=== PATIENT | female | born 1985 | race Caucasian/White ===

== ENCOUNTER → 2020-07-30 13:08 | Outpatient (BNVA) | payer MEDICAID, SELFPAY | PROVIDERS: PCP Student in an Organized Health Care Education/Training Program; Visit Provider Student in an Organized Health Care Education/Training Program | DX: Z76.89 Persons encountering health services in other specified circumstances (principal) ==

== ENCOUNTER 2020-08-11 08:36 | Emergency (ER) | payer MEDICAID, SELFPAY ==
--- NOTE | 2020-08-11 09:27 | ED.GENADULT ---
HPI - General Adult General Chief complaint: Abdominal Pain <Darya Hernández NP - Last Filed: 08/11/20 09:30> Stated complaint: abd pain <Darya Hernández NP - Last Filed: 08/11/20 09:30> Time Seen by Provider: 08/11/20 09:27 <Darya Hernández NP - Last Filed: 08/11/20 09:30> Source: patient <Mack Pittman MD - Last Filed: 08/11/20 11:13> Mode of arrival: ambulatory <Mack Pittman MD - Last Filed: 08/11/20 11:13> Limitations: no limitations <Mack Pittman MD - Last Filed: 08/11/20 11:13> History of Present Illness HPI narrative: patient taking percocet for wrist surgery, now with increased constipation <Mack Pittman MD - Last Filed: 08/11/20 11:13> Onset (ago): day(s) <Mack Pittman MD - Last Filed: 08/11/20 11:13> Radiation: back <Mack Pittman MD - Last Filed: 08/11/20 11:13> Severity: mild <Mack Pittman MD - Last Filed: 08/11/20 11:13> Quality: aching <Mack Pittman MD - Last Filed: 08/11/20 11:13> Associated symptoms: nausea/vomiting <Mack Pittman MD - Last Filed: 08/11/20 11:13> Related Data Home medications: Previous Rx's Medication Instructions Recorded lactulose 20 g PO TID #1200 ml 08/11/20 psyllium husk (with sugar) 1 tbsp PO DAILY #1368 g 08/11/20 [Metamucil (with sugar)] <Darya Hernández NP - Last Filed: 08/11/20 09:30> Allergies/adverse reactions: Allergies Allergy/AdvReac Type Severity Reaction Status Date / Time esomeprazole [From NEXIUM] Allergy Unknown NOT SURE Verified 07/30/20 13:09 penicillin V Allergy Unknown rash, Verified 07/30/20 13:09 swelling, itching Penicillins Allergy Unknown RASH Verified 07/30/20 13:09 <Darya Hernández NP - Last Filed: 08/11/20 09:30> Review of Systems Constitutional: Constitutional: Reports no additional constitutional complaints <Mack Pittman MD - Last Filed: 08/11/20 11:13> Eyes: Eyes: Reports no additional eye complaints <Mack Pittman MD - Last Filed: 08/11/20 11:13> ENT: Denies dizziness <Mack Pittman MD - Last Filed: 08/11/20 11:13> Cardiovascular: Cardiovascular: Reports no additional cardiovascular complaints <Mack Pittman MD - Last Filed: 08/11/20 11:13> Respiratory: Respiratory: Reports as per HPI <Mack Pittman MD - Last Filed: 08/11/20 11:13> Gastrointestinal: Gastrointestinal: Reports no additional gastrointestinal complaints <Mack Pittman MD - Last Filed: 08/11/20 11:13> Genitourinary: Genitourinary: Reports no additional female genitourinary complaints <Mack Pittman MD - Last Filed: 08/11/20 11:13> Musculoskeletal: Musculoskeletal: Reports no additional musculoskeletal complaints <Mack Pittman MD - Last Filed: 08/11/20 11:13> Integumentary/Breasts: Skin/Breast: Denies rash <Mack Pittman MD - Last Filed: 08/11/20 11:13> Neurologic: Reports system reviewed and no additional complaints, except as documented, Denies dizziness and Denies Sensory deficit (Neuro) <Mack Pittman MD - Last Filed: 08/11/20 11:13> Psychiatric: Psychiatric: Denies anxiety <Mack Pittman MD - Last Filed: 08/11/20 11:13> PMFSH Past Medical History Medical History: Medical History KIARA positive Carpal tunnel syndrome <Darya Hernández NP - Last Filed: 08/11/20 09:30> Social History Social History: Social History Alcohol intake: current Smoking Status: Never smoker Advance Directives: No Advance Directives Information Provided: No <Darya Hernández NP - Last Filed: 08/11/20 09:30> Physical Exam Vital Signs: Vital Signs: Last Vital Signs Temp 98.6 F 08/11/20 09:28 Pulse 95 08/11/20 09:28 Resp 18 08/11/20 09:28 BP 133/92 H 08/11/20 09:28 Pulse Ox 100 08/11/20 09:28 Body Mass Index 30.2 <Darya Hernández NP - Last Filed: 08/11/20 09:30> Vital Signs: Last Vital Signs Temp 98.6 F 08/11/20 09:28 Pulse 95 08/11/20 09:28 Resp 18 08/11/20 09:28 BP 133/92 H 08/11/20 09:28 Pulse Ox 100 08/11/20 09:28 Body Mass Index 30.2 <Mack Pittman MD - Last Filed: 08/11/20 11:13> Const: General: healthy appearing <Mack Pittman MD - Last Filed: 08/11/20 11:13> Nutritional Appearance: average body habitus <Mack Pittman MD - Last Filed: 08/11/20 11:13> Orientation/consciousness: oriented to person and patient oriented x3 <Mack Pittman MD - Last Filed: 08/11/20 11:13> Limitations: no limitations <Mack Pittman MD - Last Filed: 08/11/20 11:13> HENMT: Head: Yes normal to inspection <Mack Pittman MD - Last Filed: 08/11/20 11:13> Ears: external ears normal <Mack Pittman MD - Last Filed: 08/11/20 11:13> General nose exam: Normal external nose present <Mack Pittman MD - Last Filed: 08/11/20 11:13> Mouth: Normal oral and palatal mucosa present and oropharynx normal <Mack Pittman MD - Last Filed: 08/11/20 11:13> Throat: Yes posterior oropharynx normal <Mack Pittman MD - Last Filed: 08/11/20 11:13> Eyes: General: appearance normal, both eyes and all related structures <Mack Pittman MD - Last Filed: 08/11/20 11:13> Neck: Other: supple <Mack Pittman MD - Last Filed: 08/11/20 11:13> Neck: Yes normal visual inspection <Mack Pittman MD - Last Filed: 08/11/20 11:13> Chest: Chest palpation & inspection: normal inspection of the chest <Mack Pittman MD - Last Filed: 08/11/20 11:13> Resp: Auscultation: clear to auscultation bilaterally <Mack Pittman MD - Last Filed: 08/11/20 11:13> Cardio: Jugular venous distension: no JVD <Mack Pittman MD - Last Filed: 08/11/20 11:13> Rate: regular rate <Mack Pittman MD - Last Filed: 08/11/20 11:13> Rhythm: regular rhythm <Mack Pittman MD - Last Filed: 08/11/20 11:13> Heart sounds: S1 normal heart sound present and S2 normal heart sound present <Mack Pittman MD - Last Filed: 08/11/20 11:13> GI: Inspection: Yes normal to inspection <Mack Pittman MD - Last Filed: 08/11/20 11:13> Palpation (GI): Soft to palpation, nontender and No hepatosplenomegaly present <Mack Pittman MD - Last Filed: 08/11/20 11:13> Auscultation: Hypoactive bowel sounds present <Mack Pittman MD - Last Filed: 08/11/20 11:13> : General: Yes no CVA tenderness <Mack Pittman MD - Last Filed: 08/11/20 11:13> Back/Spine/Pelvis: Back: no CVA tenderness <Mack Pittman MD - Last Filed: 08/11/20 11:13> Skin: General skin exam: no rashes or lesions noted <Mack Pittman MD - Last Filed: 08/11/20 11:13> Neuro: General: oriented to person and patient oriented x3 <Mack Pittman MD - Last Filed: 08/11/20 11:13> Cranial nerves: Yes CN's II-XII intact bilaterally <Mack Pittman MD - Last Filed: 08/11/20 11:13> Motor exam (neuro): 5/5 motor strength present throughout <Mack Pittman MD - Last Filed: 08/11/20 11:13> Sensory Exam: No Sensory deficit (Neuro) <Mack Pittman MD - Last Filed: 08/11/20 11:13> Extrem: General: Yes normal to inspection <Mack Pittman MD - Last Filed: 08/11/20 11:13> Psych: Appearance: grossly normal <Mack Pittman MD - Last Filed: 08/11/20 11:13> Course Course Course Narrative: [id number]-This serves as a rapid medical exam. 34 yo female here with constipation. Had surgery last and given percocet. Last BM then. Took laxative yesterday now having abdominal cramping, vomiting x2. Stable vital signs. Will check KUB. Deferred additional HPI, ROS and PE to primary provider. <Darya Hernández NP - Last Filed: 08/11/20 09:30> Medical Decision Making [facility] Narrative Medical decision making narrative: Patient with hypoactive BS on exam, soft abdomen, will start lactulose <Mack Pittman MD - Last Filed: 08/11/20 11:13> Discharge Plan Discharge Clinical Impression: Constipation Qualifiers: Constipation type: drug induced constipation Qualified Code(s): K59.03 - Drug induced constipation <Darya Hernández NP - Last Filed: 08/11/20 09:30> Patient Disposition: Home, Self-Care <Darya Hernández NP - Last Filed: 08/11/20 09:30> Instructions: Constipation (ED) <Darya Hernández NP - Last Filed: 08/11/20 09:30> Prescriptions: New lactulose 20 gram/30 mL solution 20 g PO TID Qty: 1200 RF: 0 Metamucil (with sugar) 3.4 gram/12 gram powder 1 tbsp PO DAILY Qty: 1368 RF: 0 <Darya Hernández NP - Last Filed: 08/11/20 09:30>
[2020-08-11 09:28] VITALS: BP 133/92; PULSE 95; RESP 18; TEMP 37; O2SAT 100; BMI 30.2
--- NOTE | 2020-08-11 09:30 | XR_ITS ---
EXAMINATION: XR ABDOMEN KUB CLINICAL INDICATION: Evaluate stool burden COMPARISON: Previous CT December 2019 TECHNIQUE: AP view of the abdomen. FINDINGS: The bowel gas pattern is normal with no evidence of ileus or obstruction. There is some stool throughout the colon. No unusual soft tissue calcifications are noted. The gallbladder has been removed. There is a sclerotic density in the left femoral head that is unchanged probably representing a bone island. The bones are otherwise unremarkable. XR/XR KUB IMPRESSION: Normal bowel gas pattern.
[2020-08-11 11:24] VITALS: BP 118/71; PULSE 103; RESP 18; O2SAT 98
[2020-08-11] MEDS: Lactulose 20 GM/30 ML SOLUTION PO (11:25)
== END 2020-08-11 11:48 | disposition home or self-care (01) ==
PROVIDERS: Emergency Provider Emergency Medicine
DX: K59.03 Drug induced constipation (principal); Z98.890 Other specified postprocedural states
CPT/HCPCS: 74018; 99283

== ENCOUNTER 2020-08-14 10:02 | Outpatient (REF) | payer MEDICAID, SELFPAY ==
[2020-08-14 11:58] LABS: MANUAL DIFF FLAG NO
[2020-08-14 12:16] LABS: Basophils Percent Auto 0.5 % (0-2); Eosinophils Absolute Auto 0.1 X10*3/uL (0.0-0.4); Hematocrit 37.6 % (37-47); Hemoglobin 12.1 g/dl (12.0-16.0); Imm Gran Abs Auto 0.03 X10*3/uL (0.00-0.03); Imm Gran Pct Auto 0.5 % (0.0-0.4); Lymphocytes Absolute Auto 1.6 X10*3/uL (1.2-4.9); Mean Corpuscular HGB Conc 32.2 g/dl (31.0-35.0); Mean Corpuscular Hemoglobin 27.4 pg (27.0-33.0); Mean Corpuscular Volume 85.3 fL (80-98); Mean Platelet Volume 8.3 fL (9.4-12.3); Monocytes Absolute Auto 0.3 X10*3/uL (0.1-1.2); Monocytes Percent Auto 5.2 % (2-11); Neutrophils Absolute Auto 4.1 X10*3/uL (2.0-8.3); Neutrophils Percent Auto 66.8 % (45-73); Platelet Count 327 X10*3/uL (160-400); Red Blood Count 4.41 X10*6/uL (4.20-5.50); Red Cell Distribution Width 13.2 % (11.0-16.0); White Blood Count 6.2 X10*3/uL (4.8-10.8)
[2020-08-14 12:30] LABS: Alanine Aminotransferase 19 U/L (0-31); Albumin Level 4.4 g/dL (3.5-5.0); Alkaline Phosphatase 48 U/L (39-117); Anion Gap 15 (12-20); Aspartate Amino Transferase 19 U/L (5-31); Bilirubin Total 0.3 mg/dL (0.0-1.0); Blood Urea Nitrogen 11 mg/dL (9-16); C Reactive Protein 1.04 mg/dL (< or = 0.50); Calcium 9.1 mg/dL (8.4-10.2); Carbon Dioxide 21 mmol/L (22-29); Chloride 106 mmol/L (96-108); Estimated Glomerular Filt Rate > 60; Glucose Random 100 mg/dL (60-115); Potassium 4.4 mmol/l (3.3-5.1); Sodium 138 mmol/L (135-145)
[2020-08-14 12:54] LABS: Thyroid Stimulating Hormone 1.65 uIU/mL (0.32-4.0)
[2020-08-14 13:21] LABS: Erythrocyte Sedimentation Rate 18 MM/HR (0-20)
[2020-08-15 12:37] LABS: Anti DNA DS Antibody 3 IU/mL; SM/Ribonucleoprotein Ab <1.0 NEG AI (<1.0 NEG); Smith Protein <1.0 NEG AI (<1.0 NEG)
[2020-08-17 16:48] LABS: C. trachomatis RNA TMA NOT DETECTED (NOT DETECTED); N. gonorrhoeae RNA TMA NOT DETECTED (NOT DETECTED)
[2020-08-17 21:02] LABS: Complement C3 163 mg/dL (83-193)
== END 2020-08-14 10:03 | disposition home or self-care (01) ==
LOC: HO.LAB 10:02
PROVIDERS: Absent Provider Student in an Organized Health Care Education/Training Program; PCP Student in an Organized Health Care Education/Training Program; Visit Provider Advanced Practice Midwife
DX: Z01.419 Encounter for gynecological examination (general) (routine) without abnormal findings (principal); N92.0 Excessive and frequent menstruation with regular cycle; B35.6 Tinea cruris; R10.2 Pelvic and perineal pain; R76.8 Other specified abnormal immunological findings in serum; Z20.2 Contact with and (suspected) exposure to infections with a predominantly sexual mode of transmission; Z88.0 Allergy status to penicillin; Z88.8 Allergy status to other drugs, medicaments and biological substances; Z79.899 Other long term (current) drug therapy
CPT/HCPCS: 36415; 80053; 84443; 85025; 85652; 86140; 86160; 86225; 86235; 87491; 87591

== ENCOUNTER → 2020-09-10 08:20 | Outpatient (BNVA) | payer MEDICAID, SELFPAY | PROVIDERS: PCP Student in an Organized Health Care Education/Training Program; Visit Provider Student in an Organized Health Care Education/Training Program | DX: R76.8 Other specified abnormal immunological findings in serum (principal) | CPT/HCPCS: 99212 ==

== ENCOUNTER 2020-10-15 13:23 | Outpatient (REF) | payer MEDICAID, SELFPAY ==
--- NOTE | ~2020-10-15 | US_ITS ---
EXAMINATION: US PELVIS COMPLETE CLINICAL INFORMATION: Pelvic and perineal pain. COMPARISON: None TECHNIQUE: Transabdominal and transvaginal ultrasound of the pelvis is performed. FINDINGS: On transabdominal ultrasound, the uterus is anteverted and anteflexed measuring 9.9 cm in length, 5.8 cm in AP, and 7.5 cm in transverse dimension. The endometrial thickness is 1.6 cm. There is a hypoechoic lesion in the left fundus measuring 2.5 x 2.4 x 2.4 cm. Previously it measured 2.0 x 1.8 x 2.3 cm. There are small nabothian cysts seen in the cervix. The right ovary measures 3.6 x 2.8 x 3.5 cm and volume 18.5 mL. There is a corpus luteal cyst measuring 2.3 x 1.7 x 1.6 cm. Previously right ovary measured 2.1 x 2.0 x 2.8 cm. The left ovary measures 2.7 x 2.2 x 1.6 cm and volume 5.0 mL. Previously it measured 3.4 x 2.9 x 3.6 cm. US/US pelvic complete IMPRESSION: Atcsc-mg-hyqjeysn-sized solitary fibroid left uterus. Small nabothian cysts seen in the cervix. Small corpus luteal cyst right ovary measuring 2.3 cm.
--- NOTE | ~2020-10-15 | US_ITS ---
EXAMINATION: US PELVIS COMPLETE CLINICAL INFORMATION: Pelvic and perineal pain. COMPARISON: None TECHNIQUE: Transabdominal and transvaginal ultrasound of the pelvis is performed. FINDINGS: On transabdominal ultrasound, the uterus is anteverted and anteflexed measuring 9.9 cm in length, 5.8 cm in AP, and 7.5 cm in transverse dimension. The endometrial thickness is 1.6 cm. There is a hypoechoic lesion in the left fundus measuring 2.5 x 2.4 x 2.4 cm. Previously it measured 2.0 x 1.8 x 2.3 cm. There are small nabothian cysts seen in the cervix. The right ovary measures 3.6 x 2.8 x 3.5 cm and volume 18.5 mL. There is a corpus luteal cyst measuring 2.3 x 1.7 x 1.6 cm. Previously right ovary measured 2.1 x 2.0 x 2.8 cm. The left ovary measures 2.7 x 2.2 x 1.6 cm and volume 5.0 mL. Previously it measured 3.4 x 2.9 x 3.6 cm. US/US transvaginal IMPRESSION: Qyilh-mc-cqajlcgq-sized solitary fibroid left uterus. Small nabothian cysts seen in the cervix. Small corpus luteal cyst right ovary measuring 2.3 cm.
== END 2020-10-15 13:24 | disposition home or self-care (01) ==
LOC: HO.US 13:23
PROVIDERS: Visit Provider Advanced Practice Midwife
DX: R10.2 Pelvic and perineal pain (principal)
CPT/HCPCS: 76830; 76856

== ENCOUNTER → 2020-10-21 10:38 | Outpatient (BNVA) | payer MEDICAID, SELFPAY | PROVIDERS: Visit Provider Advanced Practice Midwife ==

== ENCOUNTER 2021-06-09 14:25 | Outpatient (REF) | payer MEDICAID, SELFPAY ==
[2021-06-10 09:34] LABS: CT PCR NOT DETECTED (Not Detect.); NG PCR NOT DETECTED (Not Detect.)
[2021-06-10 09:46] LABS: BV Int Neg Control Negative (Negative); BV Int Pos Control Positive (Positive)
== END 2021-06-09 14:26 | disposition home or self-care (01) ==
LOC: HO.LAB 14:25
PROVIDERS: Visit Provider Advanced Practice Midwife
DX: Z11.3 Encounter for screening for infections with a predominantly sexual mode of transmission (principal); R10.2 Pelvic and perineal pain
CPT/HCPCS: 87086; 87480; 87491; 87510; 87591; 87660; 99212

== ENCOUNTER 2021-06-14 15:26 | Outpatient (REF) | payer MEDICAID, SELFPAY ==
--- NOTE | ~2021-06-14 | US_ITS ---
EXAMINATION: US PELVIS CLINICAL INFORMATION: Pelvic and perineal pain. COMPARISON: None TECHNIQUE: Ultrasound of the pelvis is performed using both transabdominal and transvaginal transducers along with Doppler. Transvaginal imaging is performed due to inadequate visualization transabdominally. FINDINGS: Uterus: The uterus is anteverted, anteflexed and measures 11.48 seen in length, 7.0 seen AP and 9.1 cm in transverse dimension. The double wall endometrial thickness is 1.9 CM. The uterus is smooth in contour and has normal myometrial echogenicity. There is a solid isoechoic mass posterior uterus measuring 4.5 x 4.8 x 4.4 cm. Previously it measured 2.5 x 2.4 x 2.4 cm. Adnexa: Both ovaries are visualized. There is normal color flow to the adnexa. There is no ovarian torsion. There is no pelvic ascites or fluid collection. Right ovary measures 3.9 x 2.0 x 2.0 and volume 8.4 mL. Appears unremarkable. Previously right ovary measured 3.6 x 2.8 x 3.5 cm. Left ovary measures 3.2 x 1.7 x 3.1 and volume 8.9 mL. Previously left ovary measured 2.7 x 2.2 x 1.6 cm. There is no free fluid in the cul-de-sac. US/US pelvic and transvaginal IMPRESSION: Solitary fibroid posterior uterus. Normal bilateral ovaries. There is no free fluid in the cul-de-sac.
== END 2021-06-14 15:27 | disposition home or self-care (01) ==
LOC: HO.HMGCX 15:26
PROVIDERS: Visit Provider Advanced Practice Midwife
DX: R10.2 Pelvic and perineal pain (principal)
CPT/HCPCS: 76830; 76856

== ENCOUNTER → 2021-06-30 13:27 | Outpatient (BNVA) | payer MEDICAID, SELFPAY | PROVIDERS: Visit Provider Advanced Practice Midwife ==

== ENCOUNTER 2021-07-02 12:44 | Outpatient (REF) | payer MEDICAID, SELFPAY ==
[2021-07-02 13:59] LABS: Hematocrit 34.4 % (37.0-47.0); Mean Corpuscular Hemoglobin 25.8 pg (27.0-33.0); Mean Corpuscular Volume 80.8 fL (80.0-98.0); Mean Platelet Volume 8.4 fL (9.4-12.3); Platelet Count 372 X10*3/uL (160-400); Red Blood Count 4.26 X10*6/uL (4.20-5.50); Red Cell Distribution Width 14.4 % (11.0-16.0); White Blood Count 7.4 X10*3/uL (4.8-10.8)
[2021-07-02 14:37] LABS: Thyroid Stimulating Hormone 2.06 uIU/mL (0.32-4.0)
[2021-07-03 03:01] LABS: CT PCR NOT DETECTED (Not Detect.); NG PCR NOT DETECTED (Not Detect.)
== END 2021-07-02 12:45 | disposition home or self-care (01) ==
LOC: HO.LAB 12:44
PROVIDERS: Advanced Practice Midwife; Visit Provider Obstetrics & Gynecology
DX: N92.0 Excessive and frequent menstruation with regular cycle (principal); N92.1 Excessive and frequent menstruation with irregular cycle; Z11.8 Encounter for screening for other infectious and parasitic diseases; Z11.3 Encounter for screening for infections with a predominantly sexual mode of transmission; Z13.29 Encounter for screening for other suspected endocrine disorder
CPT/HCPCS: 84443; 85027; 87491; 87591

== ENCOUNTER 2021-09-06 08:12 | Outpatient (REF) | payer MEDICAID, SELFPAY ==
[2021-09-06 17:09] LABS: CT PCR NOT DETECTED (Not Detect.); NG PCR NOT DETECTED (Not Detect.)
[2021-09-07 11:01] LABS: BV Int Neg Control Negative (Negative); BV Int Pos Control Positive (Positive)
== END 2021-09-06 08:13 | disposition home or self-care (01) ==
LOC: HO.LAB 08:12
PROVIDERS: Visit Provider Advanced Practice Midwife
DX: R10.2 Pelvic and perineal pain (principal); D25.9 Leiomyoma of uterus, unspecified
CPT/HCPCS: 81003; 87480; 87491; 87510; 87591; 87660; 99212

== ENCOUNTER 2021-09-29 11:00 | Outpatient (REF) | payer MEDICAID, SELFPAY ==
--- NOTE | ~2021-09-29 | US_ITS ---
EXAMINATION: US PELVIS CLINICAL INFORMATION: Pelvic pain COMPARISON: Pelvic ultrasound 06/14/2021 TECHNIQUE: Ultrasound of the pelvis is performed using both transabdominal and transvaginal transducers along with Doppler. Transvaginal imaging is performed due to inadequate visualization transabdominally. FINDINGS: Uterus: The uterus is anteverted and measures 9.4 x 5.9 x 7.5 cm. The double wall endometrial thickness is 2.1 cm The uterus is smooth in contour and has normal myometrial echogenicity. Again demonstrated is a large fibroid of the posterior uterus that measures 5.1 x 4.6 x 3.9 cm, previously 4.5 x 4.8 x 4.4 cm. Adnexa: Both ovaries are visualized. There is normal color flow to the adnexa. There is no ovarian torsion. There is a trace amount of free fluid in the cul-de-sac. Right ovary measures 3.1 x 1.5 x 1.3 cm. Volume: 3.3 mL. Left ovary measures 4.3 x 2.3 x 3.7 cm. Volume: 19 mL US/US pelvic and transvaginal IMPRESSION: Stable fibroid in the posterior uterus. Normal bilateral ovaries.
== END 2021-09-29 11:01 | disposition home or self-care (01) ==
LOC: HO.US 11:00
PROVIDERS: Visit Provider Advanced Practice Midwife
DX: R10.2 Pelvic and perineal pain (principal); D25.9 Leiomyoma of uterus, unspecified
CPT/HCPCS: 76830; 76856

== ENCOUNTER → 2021-10-13 11:34 | Outpatient (BNVA) | payer MEDICAID, SELFPAY | PROVIDERS: PCP Student in an Organized Health Care Education/Training Program; Visit Provider Advanced Practice Midwife | DX: R10.2 Pelvic and perineal pain (principal); D25.9 Leiomyoma of uterus, unspecified; N92.0 Excessive and frequent menstruation with regular cycle; Z71.2 Person consulting for explanation of examination or test findings ==

== ENCOUNTER → 2023-01-26 12:01 | Outpatient (BNVA) | payer MEDICAID, SELFPAY | PROVIDERS: PCP Student in an Organized Health Care Education/Training Program; Visit Provider Obstetrics & Gynecology | DX: D25.9 Leiomyoma of uterus, unspecified (principal) | CPT/HCPCS: 99212 ==

== ENCOUNTER 2023-07-25 13:39 | Outpatient (AMB) | payer MEDICAID, SELFPAY ==
--- NOTE | 2023-07-25 13:41 | MHC.OFFVIS ---
Intake Vital Signs 07/25/23 13:47 Height 5 ft 2 in Weight 166 lb 2 oz BMI 30.4 BP 99/64 Blood Pressure Location Lt brachial Position Sitting Intake Visit Reasons: [employer] annual exam Allergies esomeprazole [From NEXIUM] Allergy (Unknown, Verified 07/25/23 13:47) NOT SURE Penicillins Allergy (Unknown, Verified 07/25/23 13:47) RASH Is last menstrual period known: Yes Last menstrual period: 07/03/23 HPI HPI Comments History of Present Illness Details Presenting for annual exam. No complaints. No abnormal periods, pelvic pain or pelvic pressure Last Pap/HPV was negative in 08/12 [facility] Medical History Uterine fibroid KIARA positive Carpal tunnel syndrome Surgical History History of carpal tunnel surgery of right wrist Hx of cholecystectomy Hx of tubal ligation Social History Alcohol intake: current Patient Tobacco Use Status: Never used Tobacco Female Reproductive History Menstrual Date of last menstrual period: 07/03/23 Review of Systems Const All systems reviewed & are unremarkable except as noted in HPI and below Card Reports as per HPI Resp Reports as per HPI GI Reports as per HPI and Reports no additional complaints Reports as per HPI Physical Exam Vital Signs: Last Vital Signs BP 99/64 07/25/23 13:47 BMI result Body Mass Index 30.4 Const General: cooperative, healthy appearing and comfortable Chest Chest palpation & inspection: normal inspection of the chest and normal palpation of entire chest wall Breast/axilla inspection: normal inspection of the breasts and normal inspection of the axillae Breast/axilla palpation: normal palpation of the breasts, normal palpation of the axillae and no axillary lymphadenopathy Resp Effort & Inspection: normal respiratory effort Auscultation: clear to auscultation bilaterally Percussion: percussion normal Cardio Palpation: normal PMI Rate: regular rate Rhythm: regular rhythm Heart sounds: no murmurs and no rubs Peripheral pulses: Peripheral pulses 2+ throughout GI Inspection: Yes normal to inspection Palpation (GI): Soft to palpation, nontender, no guarding, not rigid and No hepatosplenomegaly present Percussion: Yes normal to percussion Auscultation: normal bowel sounds Rectal Exam - Female: deferred General: Yes bladder normal to palpation External Female Exam: No lesion Speculum Exam - Vagina: normal appearance of the vagina, normal palpation, normal vaginal discharge and not erythematous Speculum Exam - Cervix: normal appearance of the cervix and normal palpation Bimanual exam- vagina & uterus: normal bimanual exam, normal palpation, bladder normal to palpation, consistency normal, normal palpation and enlarged Bimanual Exam- Adnexa, other: normal adnexae, no masses and no tenderness Assessment & Plan Assessment & Plan (1) Well woman exam: Code(s): Z01.419 - Encounter for gynecological examination (general) (routine) without abnormal findings Plan: Cotesting not indicated this year. Counseled the patient about the recommended dietary allowance of 1000 mg of Calcium & 600 IU of vitamin D. The patient was instructed to perform monthly self-breast exams and to schedule an annual exam in a year; All questions answered and the patient verbalized understanding. Instructed the patient to schedule annual exam in a year (2) Uterine fibroid: Code(s): D25.9 - Leiomyoma of uterus, unspecified Qualifiers: Uterine leiomyoma location: unspecified location Qualified Code(s): D25.9 - Leiomyoma of uterus, unspecified Plan: Will order ultrasound to compare the size of previous myomas. Instructions given the patient to schedule a pelvic ultrasound follow-up appointment. All questions answered, the patient verbalized understanding Coding Level of Care Code Est Pt Prev Care 18-39y(68078) Diagnoses Well woman exam Z01.419 Uterine leiomyoma, unspecified location D25.9 Uterine leiomyoma location: unspecified location
[2023-07-25 13:47] VITALS: BP 99/64; BMI 30.4
== END 2023-07-25 14:14 | disposition home or self-care (01) ==
PROVIDERS: PCP Student in an Organized Health Care Education/Training Program; Visit Provider Obstetrics & Gynecology
DX: Z01.419 Encounter for gynecological examination (general) (routine) without abnormal findings (principal); D25.9 Leiomyoma of uterus, unspecified
CPT/HCPCS: 99395

== ENCOUNTER → 2023-07-25 13:39 | Outpatient (BNVA) | payer MEDICAID, SELFPAY | PROVIDERS: PCP Student in an Organized Health Care Education/Training Program; Visit Provider Obstetrics & Gynecology | DX: Z01.419 Encounter for gynecological examination (general) (routine) without abnormal findings (principal); D25.9 Leiomyoma of uterus, unspecified | CPT/HCPCS: 99395 ==

== ENCOUNTER 2023-08-24 10:50 | Outpatient (REF) | payer MEDICAID, SELFPAY ==
--- NOTE | ~2023-08-24 | US_ITS ---
EXAMINATION: US PELVIS CLINICAL INFORMATION: Leiomyoma. LMP 07/25/2023. COMPARISON: 09/29/2021 TECHNIQUE: Ultrasound of the pelvis is performed using both transabdominal and transvaginal transducers along with Doppler. Transvaginal imaging is performed due to inadequate visualization transabdominally. FINDINGS: Uterus: The uterus is anteverted. The uterus measures 11.3 x 7.3 x 8.5 cm. Posterior fibroid with mass effect on the endometrium measures 4.9 x 3.8 x 4.1 cm, previously 5.1 x 3.9 x 4.6 cm. Left fibroid measures 2.2 x 2.2 x 2.4 cm. Thickened and heterogeneous endometrium measuring up to 2.1 cm. There is trace fluid in the endometrial cavity. Adnexa: Right ovary measures 2.7 x 3.8 x 1.6 cm. Involuting corpus luteum. Left ovary measures 2.5 x 2.7 x 1.8 cm. No significant free fluid in the pelvis. US/US pelvic and transvaginal IMPRESSION: Thickened endometrium. Correlation should be made with patient's menstrual history. Uterine fibroids as described above.
== END 2023-08-24 10:51 | disposition home or self-care (01) ==
LOC: HO.US 10:50
PROVIDERS: PCP Student in an Organized Health Care Education/Training Program; Visit Provider Obstetrics & Gynecology
DX: D25.9 Leiomyoma of uterus, unspecified (principal)
CPT/HCPCS: 76830; 76856

== ENCOUNTER 2023-09-07 10:03 | Outpatient (REF) | payer MEDICAID, SELFPAY ==
[2023-09-07 11:08] LABS: Hematocrit 32.3 % (37.0-47.0); Mean Corpuscular Hemoglobin 23.6 pg (27.0-33.0); Mean Corpuscular Volume 76.2 fL (80.0-98.0); Mean Platelet Volume 8.2 fL (9.4-12.3); Platelet Count 423 X10*3/uL (160-400); Red Blood Count 4.24 X10*6/uL (4.20-5.50); Red Cell Distribution Width 15.9 % (11.0-16.0)
[2023-09-07 11:52] LABS: HCG Quantitative < 2 mIU/mL; TSH reflex Free T4 2.75 uIU/mL (0.32-4.0)
[2023-09-08 08:07] LABS: Prolactin 5.4 ng/mL
== END 2023-09-07 10:04 | disposition home or self-care (01) ==
LOC: HO.LAB 10:03
PROVIDERS: PCP Student in an Organized Health Care Education/Training Program; Visit Provider Obstetrics & Gynecology
DX: N93.9 Abnormal uterine and vaginal bleeding, unspecified (principal); D25.9 Leiomyoma of uterus, unspecified
CPT/HCPCS: 36415; 84146; 84443; 84702; 85027; 99212

== ENCOUNTER 2023-09-07 10:03 | Outpatient (AMB) | payer MEDICAID, SELFPAY ==
[2023-09-07 10:04] VITALS: BP 110/68; BMI 30.2
--- NOTE | 2023-09-07 10:04 | A.OFFVIS_ITS ---
Intake Vital Signs 09/07/23 10:04 Height 5 ft 2 in Weight 165 lb 5.547 oz BMI 30.2 BP 110/68 Intake Visit Reasons: ultrasound follow up Laboratory Technical Specialist Required: No Information Interpreted: non-clinical & clinical Accompanied by: Self / Same As Patient Allergies esomeprazole [From NEXIUM] Allergy (Unknown, Verified 09/07/23 10:05) NOT SURE Penicillins Allergy (Unknown, Verified 09/07/23 10:05) RASH HPI HPI Comments History of Present Illness Details Presenting for ultrasound follow-up. Pelvic ultrasound done on 2023 showed the following: Uterus: The uterus is anteverted. The uterus measures 11.3 x 7.3 x 8.5 cm. Posterior fibroid with mass effect on the endometrium measures 4.9 x 3.8 x 4.1 cm, previously 5.1 x 3.9 x 4.6 cm. Left fibroid measures 2.2 x 2.2 x 2.4 cm. Thickened and heterogeneous endometrium measuring up to 2.1 cm. There is trace fluid in the endometrial cavity. Adnexa: Right ovary measures 2.7 x 3.8 x 1.6 cm. Involuting corpus luteum. Left ovary measures 2.5 x 2.7 x 1.8 cm. No significant free fluid in the pelvis. The patient is complaining of heavy menstrual cycle associated with passage of blood clots and pelvic cramping Last co testing was in 2019 was negative [facility] Medical History Uterine fibroid KIARA positive Carpal tunnel syndrome Surgical History History of carpal tunnel surgery of right wrist Hx of cholecystectomy Hx of tubal ligation Social History Alcohol intake: current Patient Tobacco Use Status: Never used Tobacco Review of Systems Const All systems reviewed & are unremarkable except as noted in HPI and below Reports as per HPI and Reports no additional complaints GI Reports no additional complaints Reports no additional complaints Physical Exam Vital Signs: BMI result Body Mass Index 30.2 Assessment & Plan Assessment & Plan (1) Uterine fibroid: Code(s): D25.9 - Leiomyoma of uterus, unspecified Qualifiers: Uterine leiomyoma location: unspecified location Qualified Code(s): D25.9 - Leiomyoma of uterus, unspecified Plan: Discussed with the patient the results of the ultrasound and the size of the myomas has increased in size from 2.2 cm in November of 2019 up to 3.4 cm in 11/12. Discussed with the patient risk of myosarcoma and symptoms that are caused by myomas including but not limited to pelvic pain, pressure symptoms, abnormal uterine bleeding. In addition discussed with the patient options of treatment for myomas including: Serial ultrasounds periodically to follow-up on the size of the myoma while targeting the treatment against fibroids related symptoms ( control pills, Mirena IUD, progesterone treatment, GnRH agonist/antagonist, uterine artery embolization or endometrial ablation) versus surgical treatment including hysterectomy and or myomectomy. All pros and cons, risks and benefits of all options were discussed with the patient. The patient understands that delay in surgical treatment in case of myosarcoma can affect her prognosis, after further discussion, the patient decided to think about it and get back to us next visit (2) Abnormal uterine bleeding (AUB): Code(s): N93.9 - Abnormal uterine and vaginal bleeding, unspecified Plan: Will order CBC, prolactin, TSH, HCG. Discussed with the patient the different causes of abnormal bleeding including thyroid disorders, uterine and ovarian pathology, endometrial hyperplasia, carcinoma and other potential causes. Discussed with the patient the work up including CBC (to r/o anemia), TSH, prolactin, pelvic Ultrasound, endometrial biopsy to r/o endometrial pathology. All questions answered and the patient verbalized understanding. Instructed the patient to schedule an appointment for an pelvic exam, endometrial biopsy in 1- 2 weeks. Orders: Orders TSH reflex Free T4 Today N93.9 - Abnormal uterine and vaginal bleeding, unspecified HCG Quantitative Today N93.9 - Abnormal uterine and vaginal bleeding, unspecified Complete Blood Count no Diff Today N93.9 - Abnormal uterine and vaginal bleeding, unspecified Prolactin Today N93.9 - Abnormal uterine and vaginal bleeding, unspecified Coding Level of Care Code Est Pt Level 3 (23136) Diagnoses Uterine leiomyoma, unspecified location D25.9 Uterine leiomyoma location: unspecified location Abnormal uterine bleeding (AUB) N93.9
== END 2023-09-07 10:25 | disposition home or self-care (01) ==
LOC: HO.HWS 10:03
PROVIDERS: PCP Student in an Organized Health Care Education/Training Program; Visit Provider Obstetrics & Gynecology
DX: D25.9 Leiomyoma of uterus, unspecified (principal); N93.9 Abnormal uterine and vaginal bleeding, unspecified
CPT/HCPCS: 99213

== ENCOUNTER 2023-09-14 11:10 | Outpatient (REF) | payer MEDICAID, SELFPAY ==
[2023-09-20 20:19] LABS: HPV mRNA E6/E7 rflx Not Detected (Not Detected)
== END 2023-09-14 11:11 | disposition home or self-care (01) ==
LOC: HO.LNP 11:10
PROVIDERS: PCP Student in an Organized Health Care Education/Training Program; Visit Provider Obstetrics & Gynecology
DX: N93.9 Abnormal uterine and vaginal bleeding, unspecified (principal); Z32.02 Encounter for pregnancy test, result negative
CPT/HCPCS: 58100; 81025; 87624; 88142; 88305; 99212

== ENCOUNTER 2023-09-14 11:10 | Outpatient (AMB) | payer MEDICAID, SELFPAY ==
--- OUTSIDE RECORDS SUMMARY | 2023-09-14 11:12 | XMS_ITS | Patient Health Record ---
Author Name Unknown Organization [facility], Address [address] [place] [address] Support Name Relationship Address Phone Gabriel Geronimo Guarantor Unknown [phone] REASON FOR REFERRAL No Information SOCIAL HISTORY Sex Assigned At : Social History Observation Description Sex Assigned At Unknown PLAN OF TREATMENT Pending Test Test Name Order Date SARS-COV-2, NAAT/RT-PCR/TMA - 62149 10/2020 Insurance Providers Payer Name Payer Address Payer Phone Subscriber Number Group Number Insured Name Patient Relationship to Insured Coverage Start Date Coverage End Date CARES Act Gabriel Geronimo Self - patient is the insured
--- NOTE | 2023-09-14 11:22 | MHC.OFFVIS ---
Intake Vital Signs 09/14/23 11:34 BP 104/60 Intake Visit Reasons: EMB/co-test Finance Insurance Manager Required: No Information Interpreted: non-clinical & clinical Technology Applications Engineer: Technology Applications Engineer Present (Sarika Eliseo WAN) Accompanied by: Self / Same As Patient Allergies esomeprazole [From NEXIUM] Allergy (Unknown, Verified 09/14/23 11:32) NOT SURE Penicillins Allergy (Unknown, Verified 09/14/23 11:32) RASH HPI HPI Comments History of Present Illness Details Presenting for EMB, co testing and pelvic exam for AUB PFSH Medical History Uterine fibroid KIARA positive Carpal tunnel syndrome Surgical History History of carpal tunnel surgery of right wrist Hx of cholecystectomy Hx of tubal ligation Social History Alcohol intake: current Patient Tobacco Use Status: Never used Tobacco Review of Systems Const All systems reviewed & are unremarkable except as noted in HPI and below Physical Exam Vital Signs: Last Vital Signs BP 104/60 09/14/23 11:34 General: Yes no CVA tenderness External Female Exam: normal external appearance and normal appearance of the urethra Speculum Exam - Vagina: normal appearance of the vagina, normal palpation, no lesions and no masses Speculum Exam - Cervix: normal appearance of the cervix, normal palpation, no lesions, no masses and nontender Bimanual exam- vagina & uterus: normal bimanual exam, normal palpation, uterine size normal, normal palpation, uterine shape normal, No Cervical tenderness present and non-tender Bimanual Exam- Adnexa, other: normal adnexae Back/Spine/Pelvis Back: no CVA tenderness Office Procedures Endometrial Biopsy Details: The patient was counseled regarding the indication and benefits of endometrial sampling to rule out endometrial pathology including not limited to endometrial hyperplasia or endometrial cancer and others; The alternatives (Either do nothing vs. hysteroscopy D&C) & the risks were discussed with the patient including but not limited: pain, uterine perforation, bleeding, infection, possible injury to bladder, bowel, ureter, possible need for blood transfusion with all its possible risks. The patient verbalized understanding all questions answered and signed consent. Urine test done in the office was negative The patient was placed into the dorsal lithotomy position; a speculum was inserted in the vagina. Using aseptic technique for the procedure, the cervix was cleansed with Betadine. The anterior lip of the cervix was grasped with a single tooth tenaculum. The uterus was sounded to 8 cm with a 4 mm Pipelle was used. Tissues samples were obtained and placed in formalin, in a patient labeled container and sent to the pathology department. At the end of the procedure, there was minimal bleeding noted The patient tolerated the procedure well and was discharged in good condition with the following instructions: Nothing in the vagina until the bleeding stops. No sex until the bleeding stops, to call if any of the following occurs: fever (>100.4), flu-like symptoms, abdominal pain, heavy bleeding, four smelling vaginal discharge. The patient was instructed to schedule a Follow up appointment in 2 weeks to discuss pathology results of the biopsy and treatment options. This note was generated with a voice recognition program. Some errors may have been overlooked during the review of this note. Sometimes these errors may affect the content or meaning of a given sentence. [id number] Biopsy Results AMB Test Urine AMB Test Urine Negative Last Edit by Sarika Gomes CMA on 09/14/23 11:41 Assessment & Plan Assessment & Plan (1) Abnormal uterine bleeding (AUB): Code(s): N93.9 - Abnormal uterine and vaginal bleeding, unspecified Plan: Co testing an EMB done. See procedure note Orders: Orders AMB Endometrial Biopsy Today N93.9 - Abnormal uterine and vaginal bleeding, unspecified AMB HCG Urine Test Today N93.9 - Abnormal uterine and vaginal bleeding, unspecified, Z32.02 - Encounter for test, result negative Coding Level of Care Code Est Pt Level 3 (80795) Procedure Only Diagnoses Abnormal uterine bleeding (AUB) N93.9 CPT Codes Endometrial Biopsy - CPT: 00634-Eahsnmftbzv Biopsy ([id number])
[2023-09-14 11:34] VITALS: BP 104/60
== END 2023-09-14 11:47 | disposition home or self-care (01) ==
LOC: HO.HWS 11:10
PROVIDERS: PCP Student in an Organized Health Care Education/Training Program; Visit Provider Obstetrics & Gynecology
DX: N93.9 Abnormal uterine and vaginal bleeding, unspecified (principal); Z32.02 Encounter for pregnancy test, result negative
CPT/HCPCS: 58100; 99213

== ENCOUNTER 2023-10-19 11:32 | Outpatient (AMB) | payer MEDICAID, SELFPAY ==
--- NOTE | 2023-10-19 11:39 | MHC.OFFVIS ---
Intake Vital Signs 10/19/23 11:46 Height 5 ft 2 in Weight 165 lb 5.547 oz BMI 30.2 BP 110/72 Intake Visit Reasons: emb follow up/colpo procedure Convenience Store Clerk Required: No Information Interpreted: non-clinical & clinical Funeral Greeter: Funeral Greeter Present (Sarika WAN) Accompanied by: Self / Same As Patient Allergies esomeprazole [From NEXIUM] Allergy (Unknown, Verified 10/19/23 11:48) NOT SURE Penicillins Allergy (Unknown, Verified 10/19/23 11:48) RASH Is last menstrual period known: Yes Last menstrual period: 09/22/23 HPI HPI Comments History of Present Illness Details The patient is presenting for follow-up to discuss the results of her abnormal uterine bleeding workup and options of treatment. The following workup was done.: H&H= 32.3 TSH, prolactin, hCG, GC and chlamydia were negative. Endometrial biopsy pathology showed disordered proliferative endometrium with no evidence of hyperplasia and/or malignancy. Co testing = LGSIL/HPV negative Pelvic ultrasound showed the following: Uterus: The uterus is anteverted. The uterus measures 11.3 x 7.3 x 8.5 cm. Posterior fibroid with mass effect on the endometrium measures 4.9 x 3.8 x 4.1 cm, previously 5.1 x 3.9 x 4.6 cm. Left fibroid measures 2.2 x 2.2 x 2.4 cm. Thickened and heterogeneous endometrium measuring up to 2.1 cm. There is trace fluid in the endometrial cavity. Adnexa: Right ovary measures 2.7 x 3.8 x 1.6 cm. Involuting corpus luteum. Left ovary measures 2.5 x 2.7 x 1.8 cm. No significant free fluid in the pelvis. [facility] Medical History Uterine fibroid KIARA positive Carpal tunnel syndrome Surgical History History of carpal tunnel surgery of right wrist Hx of cholecystectomy Hx of tubal ligation Social History Alcohol intake: current Patient Tobacco Use Status: Never used Tobacco Female Reproductive History Menstrual Date of last menstrual period: 09/22/23 Physical Exam Vital Signs: Last Vital Signs BP 110/72 10/19/23 11:46 BMI result Body Mass Index 30.2 Office Procedures Colposcopy Before the procedure was started discussed with the patient the procedure, alternatives & all the risks associated with the procedure (bleeding, infection, injury to vagina, bladder, vessels, possible need for transfusion with all its risks) then patient signed the consent Pap smear = LSIL/HPV negative Urine test done in the office was negative Speculum inserted, acetic acid used Colposcopy done Transformation zone seen, acetowhite lesions identified at 9+11+12+1+3+4 o?clock, cervical biopsies taken from 9+11+12+1+3+4 o?clock, ECC done afterwards. Vaginoscopy of the upper vagina showed no evidence of any aceto-white lesions Monsel solution used for hemostasis. The patient tolerated well . At the end the patient was instructed to call if temp>100.4, abdominal pain, n/v, bleeding; The patient was given the following instructions: nothing per vagina, no intercourse or bath tub use. All questions answered the patient verbalized understanding. Instructed the patient to make an appointment in 2 weeks for follow-up This note was generated with a voice recognition program. Some errors may have been overlooked during the review of this note. Sometimes these errors may affect the content or meaning of a given sentence. 07250-[id number] of cervix including upper vagina with biopsy and ECC Procedure code (CPT) selection complete Results AMB Test Urine AMB Test Urine Negative Last Edit by Sarika Gomes CMA on 10/19/23 11:50 Results Reviewed Results Reviewed: Laboratory Last Values Tst Clinic Negative 10/19/23 11:49 Assessment & Plan Assessment & Plan (1) LGSIL on Pap smear of cervix: Code(s): R87.612 - Low grade squamous intraepithelial lesion on cytologic smear of cervix (LGSIL) Plan: Discussed with the patient the result of her abnormal pap, its significance, risk of progression, persistence, and regression. the false positive/negative rate of a Pap smear as a screening test in detecting cervical cancer and the indication for a diagnostic test -colposcopy, biopsy, endocervical curettage. The patient verbalized understanding and agreed with the plan, all questions answered. Colposcopy done, see procedure note (2) Abnormal uterine bleeding (AUB): Comment: Positive KIARA Code(s): N93.9 - Abnormal uterine and vaginal bleeding, unspecified Plan: See discussion regarding options of treatment for uterine fibroids (3) Uterine fibroid: Code(s): D25.9 - Leiomyoma of uterus, unspecified Qualifiers: Uterine leiomyoma location: unspecified location Qualified Code(s): D25.9 - Leiomyoma of uterus, unspecified Plan: Discussed with the patient the results of the ultrasound and the size of the myomas. Discussed with the patient risk of myosarcoma and symptoms that are caused by myomas including but not limited to pelvic pain, pressure symptoms, abnormal uterine bleeding. In addition discussed with the patient options of treatment for myomas including: Serial ultrasounds periodically to follow-up on the size of the myoma while targeting the treatment against fibroids related symptoms ( control pills, Mirena IUD, progesterone treatment, GnRH agonist/antagonist, uterine artery embolization or endometrial ablation) versus surgical treatment including hysterectomy and or myomectomy. All pros and cons, risks and benefits of all options were discussed with the patient. The patient understands that delay in surgical treatment in case of myosarcoma can affect her prognosis, after further discussion, the patient decided to think about it and get back to us next visit Orders: Orders AMB HCG Urine Test Today Z32.02 - Encounter for test, result negative AMB Colposcopy Today R87.612 - Low grade squamous intraepithelial lesion on cytologic smear of cervix (LGSIL) Coding Level of Care Code Est Pt Level 3 (66878) Procedure Only Diagnoses LGSIL on Pap smear of cervix R87.612 Abnormal uterine bleeding (AUB) N93.9 Uterine leiomyoma, unspecified location D25.9 Uterine leiomyoma location: unspecified location CPT Codes Colposcopy - CPT: 49032-Zqckvspam of cervix including upper vagina with biopsy and ECC ([id number])
[2023-10-19 11:46] VITALS: BP 110/72; BMI 30.2
== END 2023-10-19 12:02 | disposition home or self-care (01) ==
PROVIDERS: PCP Student in an Organized Health Care Education/Training Program; Visit Provider Obstetrics & Gynecology
DX: R87.612 Low grade squamous intraepithelial lesion on cytologic smear of cervix (LGSIL) (principal); N93.9 Abnormal uterine and vaginal bleeding, unspecified; D25.9 Leiomyoma of uterus, unspecified; Z32.02 Encounter for pregnancy test, result negative
CPT/HCPCS: 57454; 99213

== ENCOUNTER 2023-10-19 11:32 | Outpatient (REF) | payer MEDICAID, SELFPAY | END 2023-10-19 11:33 | disposition home or self-care (01) | LOC: HO.LNP 11:32 | PROVIDERS: PCP Student in an Organized Health Care Education/Training Program; Visit Provider Obstetrics & Gynecology | DX: R87.612 Low grade squamous intraepithelial lesion on cytologic smear of cervix (LGSIL) (principal); N93.9 Abnormal uterine and vaginal bleeding, unspecified; D25.9 Leiomyoma of uterus, unspecified | CPT/HCPCS: 57454; 81025; 88305; 99212 ==

== ENCOUNTER 2024-02-12 10:26 | Outpatient (AMB) | payer MEDICAID, SELFPAY ==
--- NOTE | 2024-02-12 11:06 | MHC.OFFVIS ---
Intake Visit Reasons: colpo results Allergies esomeprazole [From NEXIUM] Allergy (Unknown, Verified 10/19/23 11:48) NOT SURE Penicillins Allergy (Unknown, Verified 10/19/23 11:48) RASH HPI Comments Details: The patient is scheduled tele health visit post colpo for follow-up. The patient is doing well with no complaints. The pathology showed the following: A. Endocervix, curettage: Superficial strips of mildly inflamed endocervical tissue, otherwise within normal limits. B. Cervix, 1 o'clock, biopsy: - Fragments of mildly inflamed endocervical mucosa, otherwise within normal limits. - Squamous epithelium within normal limits. C. Cervix, 3 o'clock, biopsy: - Fragments of mildly inflamed endocervical mucosa, otherwise within normal limits. - No squamous epithelium identified. D. Cervix, 4 o'clock, biopsy: - Low-grade squamous intraepithelial lesion (ROMAN 1). - Background inflamed squamous and endocervical mucosa with reactive changes. E. Cervix, 9 o'clock, biopsy: - Scant superficial strips of endocervical epithelium within normal limits. - No squamous epithelium identified. F. Cervix, 11 o'clock, biopsy: Inflamed cervical transformation zone and endocervical mucosa with reactive changes. G. Cervix, 12 o'clock, biopsy: Inflamed cervical transformation zone mucosa with reactive changes [facility] Medical History Uterine fibroid KIARA positive Carpal tunnel syndrome Surgical History History of carpal tunnel surgery of right wrist Hx of cholecystectomy Hx of tubal ligation Social History Alcohol intake: current Patient Tobacco Use Status: Never used Tobacco Review of Systems Const All systems reviewed & are unremarkable except as noted in HPI and below Reports as per HPI and Reports no additional complaints GI Reports no additional complaints Reports no additional complaints Telehealth Telehealth Telehealth Platform: Telephone Location of provider rendering services: practice address Location of patient: address on file Patient Identification confirmed using: Name, : Yes Telehealth method: video Patient verbally consented to treatment: Yes Patient verbally consented to billing insurance company: Yes Patient informed of any privacy concerns related to visit: Yes Assessment & Plan Assessment & Plan (1) Dysplasia of cervix, low grade (ROMAN 1): Code(s): N87.0 - Mild cervical dysplasia Category: Medical Plan: Discussed with the patient the pathology results of the colposcopy biopsies & endocervical curettage ( mild dysplasia-ROMAN 1). Discussed with the patient the sensitivity specificity, positive and negative predictive value in detecting cervical cancer in addition discussed the regression, persistence and progression rates. Recommended co-testing in 12 months, if cytology and or HPV are abnormal will proceed was colposcopy biopsy and endocervical curettage, if lesions gets worse or stays persistent for 2 years will proceed with loop electric excision procedure. Instructions given to the patient to schedule a co test appointment in 1 year. All questions answered the patient verbalized understanding. I spent a total of 20 minutes reviewing the chart, talking to the patient via video and documenting in the medical record. Coding Level of Care Code Tele Est Pt Level 1 (62702) Diagnoses Dysplasia of cervix, low grade (ROMAN 1) N87.0
== END 2024-02-12 12:19 | disposition home or self-care (01) ==
LOC: HO.HWS 10:26
PROVIDERS: PCP Student in an Organized Health Care Education/Training Program; Visit Provider Obstetrics & Gynecology
DX: N87.0 Mild cervical dysplasia (principal)
CPT/HCPCS: 99211

== ENCOUNTER → 2024-02-12 10:26 | Outpatient (BNVA) | payer MEDICAID, SELFPAY | PROVIDERS: PCP Student in an Organized Health Care Education/Training Program; Visit Provider Obstetrics & Gynecology ==

== ENCOUNTER 2024-02-27 12:45 | Outpatient (REF) | payer MEDICAID, SELFPAY ==
[2024-02-27 14:06] LABS: MANUAL DIFF FLAG NO
[2024-02-27 14:11] LABS: Basophils Percent Auto 0.6 % (0-2); Eosinophils Absolute Auto 0.1 X10*3/uL (0.0-0.4); Eosinophils Percent Auto 1.4 % (0-4); Hematocrit 38.4 % (37.0-47.0); Hemoglobin 12.6 g/dl (12.0-16.0); Imm Gran Abs Auto 0.03 X10*3/uL (0.00-0.03); Imm Gran Pct Auto 0.6 % (0.0-0.4); Lymphocytes Absolute Auto 1.5 X10*3/uL (1.2-4.9); Lymphocytes Percent Auto 29.1 % (20-40); Mean Corpuscular HGB Conc 32.8 g/dl (31.0-35.0); Mean Corpuscular Hemoglobin 28.5 pg (27.0-33.0); Mean Corpuscular Volume 86.9 fL (80.0-98.0); Mean Platelet Volume 8.5 fL (9.4-12.3); Monocytes Absolute Auto 0.2 X10*3/uL (0.1-1.2); Monocytes Percent Auto 4.4 % (2-11); Neutrophils Absolute Auto 3.2 x10*3/uL (2.0-8.3); Neutrophils Percent Auto 63.9 % (45-73); Platelet Count 319 X10*3/uL (160-400); Red Blood Count 4.42 X10*6/uL (4.20-5.50); Red Cell Distribution Width 13.9 % (11.0-16.0)
[2024-02-27 14:19] LABS: Estimated Average Glucose 103 mg/dL; Hemoglobin A1c % 5.2 % (<6.0)
[2024-02-27 14:36] LABS: Rheumatoid Factor < 13.0 IU/mL (<15.0)
[2024-02-27 14:41] LABS: Alanine Aminotransferase 14 U/L (0-31); Albumin Level 4.4 g/dL (3.5-5.0); Alkaline Phosphatase 44 U/L (39-117); Anion Gap 13 (12-20); Aspartate Amino Transferase 20 U/L (5-31); Bilirubin Total 0.3 mg/dL (0.0-1.0); Blood Urea Nitrogen 10 mg/dL (9-16); Calcium 9.4 mg/dL (8.4-10.2); Carbon Dioxide 23 mmol/L (22-29); Chloride 105 mmol/L (96-108); Cholesterol 181 mg/dL (<200); Estimated Glomerular Filt Rate > 60; Glucose Random 90 mg/dL (60-115); HDL Cholesterol 72 mg/dL (>40); Iron 59 mcg/dL (30-160); LDL Cholesterol Calculated 93 mg/dL (<100); Percent Iron Saturation 15 % (15-50); Sodium 137 mmol/L (135-145); Total Iron Binding Capacity 397 mcg/dL (228-428); Triglycerides 84 mg/dL (<150); Unsaturated Iron Binding 338 ug/dL
[2024-02-27 14:57] LABS: TSH reflex Free T4 2.35 uIU/mL (0.32-4.0)
[2024-02-27 14:59] LABS: Erythrocyte Sedimentation Rate 7 MM/HR (0-20)
[2024-03-04 16:10] LABS: Cyclic Citrullinated Peptide <16 UNITS
[2024-03-05 12:13] LABS: Anti Nuclear Antibody Pattern Nuclear, Speckled; Anti Nuclear Antibody Screen POSITIVE (NEGATIVE); Anti Nuclear Antibody Titer 1:40 titer
[2024-03-10 16:09] LABS: DNAds, Crithidia Antibody Negative (Negative)
== END 2024-02-27 12:46 | disposition home or self-care (01) ==
LOC: HO.CHCLDS 12:45
PROVIDERS: Visit Provider Internal Medicine
DX: D50.0 Iron deficiency anemia secondary to blood loss (chronic) (principal); Z83.3 Family history of diabetes mellitus; M79.89 Other specified soft tissue disorders
CPT/HCPCS: 36415; 80053; 80061; 83036; 83540; 84443; 85025; 85652; 86038; 86039; 86140; 86200; 86255; 86431

== ENCOUNTER 2024-09-26 12:34 | Outpatient (REF) | payer MEDICAID, SELFPAY ==
[2024-09-26 14:52] LABS: HCG Quantitative < 2 mIU/mL
--- OUTSIDE RECORDS SUMMARY | 2024-09-26 15:06 | XMS_ITS | Encounter Summary ---
Author Organization [employer] Address [address] [place] [address] Care Team Providers Care Software Quality Assurance Analyst Name Role Phone Ankit Paredes MD Primary Care Prov ider Encounter Details Date Type Department Care Team ([facility] st Contact Info) Description 09/23/2024 10:45 AM EST Telemedicine [facility] [address] [place], [place] [phone] Ankit Paredes MD [address] [place] [address] Bilateral hand swelling (Primary Dx); Low libido Social History Tobacco Use Types Packs/Day Years Used Date Smoking Tobacco: Never Smokeless Tobacco: Never Alcohol Use Standard Drinks/Week Comments Not Currently 0 (1 standard drink = 0.6 oz pur e alcohol) socially Depression Answer Date Recorded Patient Health Questionnaire-9 Score 0 12/08/2023 Patient Health Questionnaire-9 Score 0 12/08/2023 Last PHQ-9: Questionnaire Data Not on file 0 12/08/2023 Housing Stability Answer Date Recorded What is your housing situation today? I have angelic elizabeth 12/08/[address] you li ve. Do you have problems with any of the following? None of the above 12/08/2023 Food Insecurity Answer Date Recorded Within the past 12 months, y ou worried that your food would run out before you got money to buy more: Never True 12/08/2023 Within the past 12 months,th e food you bought just didn't last and you didn't have enough money to get more: Never True Transportation Answer Date Recorded In the past 12 months, has l ack of transportation kept you from medical appts, meetings, work or from getting things needed for daily living? No 12/08/2023 Utilities Answer Date Recorded In the past 12 months, has t he electric, gas, oil or water company threatened to shut off services in your home? No 12/08/2023 Depression Answer Date Recorded Patient Health Questionnaire-2 Score 0 12/08/2023 Comments Unknown Sex and Gender Information Value Date Recorded Sex Assigned at Female 05/23/2022 10:15 AM EDT Legal Sex Female 10:15 AM EDT Gender Identity Choose not to disclose 10:15 AM EDT Sexual Orientation Choose not to disclose 2021 10:15 AM EDT documented as of this encounter Progress Notes * Ankit Ramos MD - 09/23/2024 10:45 AM EST Subjective Patient ID: Gabriel Geronimo is a 38 y.o. adult who presents for No chief complaint on file.. Hand Pain The pain is present in the left wrist and right wrist. The quality of the pain is described as aching. Pertinent negatives include no chest pain, muscle weakness, numbness or tingling. Review of Systems Cardiovascular: Negative for chest pain. Neurological: Negative for tingling and numbness. Objective Physical Exam Neurological: General: No focal deficit present. Mental Status: Gabriel is oriented to person, place, and time. Psychiatric: Mood and Affect: Mood normal. Behavior: Behavior normal. Assessment/Plan Problem List Items Addressed This Visit Bilateral hand swelling - Primary Discussed blood work with patient, no further events of extremity swelling, no rash or fatigue, follow up a needed Other Visit Diagnoses Low libido Will order blood work follow up in around 2 weeks to dicuss treatment, she denied depression/anxiety Relevant Orders Prolactin, Dilution Study FSH And LH Estradiol hCG, Total, Quantitative documented in this encounter Miscellaneous Notes * Assessment & Plan Note - Ankit Ramos MD - 09/23/2024 11:15 AM ESTAssociated Problem(s): Bilateral hand swelling Discussed blood work with patient, no further events of extremity swelling, no rash or fatigue, follow up a needed documented in this encounter Plan of Treatment Upcoming Encounters Date Type Department Care Team (Late st Contact Info) Description 10/03/2024 10:15 AM EDT Telemedicine [facility] [address] [place] [address] Ankit Paredes MD [address] [place] [address] Scheduled Orders Name Type Priority Associated Diagnoses Orde r Schedule Prolactin, Dilution Study Lab Routine Low libido Expected: 09/23/2024 (Approximate), Expires: 09/23/2025 FSH And LH Lab Routine Low libido Expected: 09/23/2024 (Approximate), Expires: 09/23/2025 Estradiol Lab Routine Low libido Expected: 09/23/2024, Expires: 09/23/2025 documented as of this encounter Procedures Procedure Name Priority Date/Time Associated Diagnosis Comments HCG, TOTAL, QN Routine 09/26/2024 12:37 PM EST Low libido documented in this encounter Results * hCG, Total, Quantitative (09/26/2024 12:37 PM EST) HCG Quantitative <2 mIU/mL [facility] Comment:Weeks post LMP Appro ximate hCG(Last Menstrual Period) Range (mIU/ml)3 - 4 weeks 9 - 1304 - 5 weeks 75 - 2,6005 - 6 weeks 850 - 20,8006 - 7 weeks 4000 - 100,2007 - 12 weeks 11,500 - 289,51829 - 16 weeks 18,300 - 137,88455 - 29 weeks (2nd trimester) 1,400 - 53,20041 - 41 weeks (3rd trimester) 940 - 60,000The Langston B- hCG assay is used for the early detection ofpregnancy; it cannot be used to diagnose any conditionunrelated to . If a B-hCG level is not supportedby the clinical evidence, results should be confirmed by analternative method (qualitative urine hCG, for example). Blood Venous blood specimen / Unknown 09/26/2024 12:37 PM EST 09/26/2024 2:12 PM EST us Ankit Ramos MD LAB BLOOD ORDERABL ES Final Result [facility] [address] [place] [address] [phone] documented in this encounter Visit Diagnoses Diagnosis Bilateral hand swelling- Primary Low libido documented in this encounter Additional Health Concerns Assessment Noted Time PHQ-9 Depression Total Score: 0 12/08/19 24 9:46 AM EDT documented as of this encounter Care Teams Software Quality Assurance Analyst Relationship Specialty Start Date End Date Ankit Paredes MD [address] [place] [id number] PCP - General Internal Medicine 12/13/23 documented as of this encounter
--- OUTSIDE RECORDS SUMMARY | 2024-09-26 15:06 | XMS_ITS | Encounter Summary ---
Author Organization [employer] Address [address], [place] [address] Care Team Providers Care Digital Photo Printer Name Role Phone Ankit Paredes MD Primary Care Prov ider Reason for Visit * Reason Onset Date Comments chart prep 09/20/2024 Encounter Details Date Type Department Care Team ([facility] Contact Info) Description 09/20/[address] [facility] [address] [place] [address] Ankit Paredes MD [address] [place] [address] chart prep Social History Tobacco Use Types Packs/Day Years [...] AM EDT documented as of this encounter Miscellaneous Notes * Telephone Encounter - Mega Montes [place] - 09/20/2024 9:32 AM EST Chart Prep Labs: done Images: done Vaccines due: yes Referrals: complete Screenings: Overdue care gaps: PHQ-9 documented in this encounter Plan of Treatment Upcoming Encounters Date Type Department Care Team (Late st Contact Info) Description 10/03/2024 10:15 AM EDT Telemedicine [facility] [address] [place] [address] Ankit Paredes MD [address] [place] [address] documented as of this encounter Visit Diagnoses Not on filedocumented in this encounter Additional Health Concerns Assessment Noted Time PHQ-9 Depression Total Score: 0 12/08/19 9:46 AM EDT documented as of this encounter Care Teams Digital Photo Printer Relationship Specialty Start Date End Date Ankit Paredes MD [address] [place] [address] PCP - General Internal Medicine 12/13/23 documented as of this encounter
--- OUTSIDE RECORDS SUMMARY | 2024-09-26 15:06 | XMS_ITS | Clinical Summary ---
Author Organization [employer] Address [address] [facility] [address] [place] [address] Care Team Providers Care Manager Online Name Role Phone Ankit Paredes MD Primary Care Prov ider Allergies Active Allergy Reactions Criticality Noted Date Comments Penicillin G Swelling,Rash Low 12/08/2023 Medications No known medications Active Problems Problem Noted Date Diagnosed Date Bilateral hand swelling 02/27/2024 Assessment & Plan (09/23/2024 11:15 AM EST): Discussed blood work with patient, no further events of extremity swelling, no rash or fatigue, follow up a needed Assessment & Plan (02/27/2024 12:46 PM EDT): Will test for SLE and RA, she has hx of borderline lupus test results and fam hx of sle/RA Iron deficiency anemia due to chronic blood loss 12/08/2023 Assessment & Plan (02/27/2024 12:47 PM EDT): Labs will be ordered for guidance of therapy Assessment & Plan (12/08/2023 10:36 AM EDT): Related to vaginal bleeding, on ferrous sulfate, followed by ob-competitive intelligence analyst Chronic bilateral low back pain without sciatica 12/08/2023 Assessment & Plan (12/08/2023 10:37 AM EDT): Patient has tried previously PT< was recommend pain management, but she wanted to avoid therapy for now, she refers gets relief with muscle relaxant when acute episode develops, denied neurologic deficit Encounter for physical examination 12/08/2023 Assessment & Plan (02/27/2024 12:50 PM EDT): Unremarkable physical examination, no heart murmur, no thyroid nodules, will check for anemia/rheumatoid disease Assessment & Plan (12/08/2023 10:40 AM EDT): Last hospitalization on 2013 for cholecystectomy ER visit in over 2 years for abdominal pain due to constipation She has not seen a pcp since 2020 PMH: back pain, iron def anemia due to vaginal bleeding Psh: tubal [id number]/cholecystectomy 2013 A0 Menarche 12yr LMP 11/22/2023 Cervical cancer screening: done on 2022 Dr beena cantrell ob-competitive intelligence analyst Encounters Date Type Department Care Team Description 09/23/2024 10:45 AM EST Telemedicine [facility] AT MED [facility] PEDS [address] [place] [address] Ankit Paredes MD Bilateral hand swelling (Primary Dx); Low libido 09/23/2024 Travel 09/20/2024 Telephone [facility] [address] [place] [address] Ankit Paredes MD chart prep from Last 3 Months Immunizations Name Administration Dates Next Due Tdap 02/27/2024 Family History Medical History Relation Name Comments No Known Problems Father Coronary artery disease Mother Diabetes type II Mother Hyperlipidemia Mother Hypertension Mother Cancer Mother's Sister Lupus Mother's Sister Relation Name Status Comments Father Mother Mother's Sister Social History Tobacco Use Types Packs/Day Years Used Date Smoking Tobacco: Never Smokeless Tobacco: Never Tobacco Cessation:Counseling Given: Not Answered Alcohol Use Standard Drinks/Week Comments Not Currently [...] not to disclose 2021 10:15 AM EDT Last Filed Vital Signs Vital Sign Reading Time Taken Comments Blood Pressure 117/78 02/27/2024 11:55 AM EDT Pulse 89 02/27/2024 11:55 AM EDT Temperature 36.3 ??C (97.3 ??F) 02/27/2024 11:55 AM E DT Respiratory Rate 12 02/27/2024 11:55 AM EDT Oxygen Saturation 98% 02/27/2024 11:55 AM EDT Inhaled Oxygen Concentration - - Weight 76.2 kg (168 lb) 02/27/2024 11:55 AM EDT Height 165 cm (5' 4.96 ) 02/27/2024 11:55 AM EDT Body Mass Index 27.99 02/27/2024 11:55 AM EDT Plan of Treatment Upcoming Encounters Date Type Department Care Team (Late st Contact Info) Description 10/03/2024 10:15 AM EDT Telemedicine [facility] MED [facility] PED[facility] [address] [place] [address] Ankit Paredes MD [address] [place], [place] [phone] Health Maintenance Due Date Last Done Comments Alcohol/Substance Use Screening 1997 Family Planning (PISQ) 2000 COVID-19 Vaccine (2023- season) 2024 Influenza Vaccine (#1) 2024 HPV/Cotest 08/06/2024 08/06/2019 Depression Screening 12/07/2024 12/08/2023, 12/08/19 24 SDOH Screening 12/07/2024 12/08/2023 Tobacco Screening 09/23/2025 09/23/2024 Cervical Cancer Screening 09/14/2026 Pap Smear 09/14/2026 09/14/2023 DTaP/Tdap/Td Vaccines (8 - Td or Tdap) 02/26/2034 02/27/2024, 09/20/2016, 06/03/2000, Additional history exists Zoster Vaccines (1 of 2) 12/11/2035 RSV Patients and Patients Aged 60 years or older (1 - 1-dose 75+ series) 2060 IPV Vaccines Completed 12/29/1988, 12/22, 09/25/1986, Additional history exists HIB Vaccines Completed 04/24/1989 Hepatitis B Vaccines Completed 09/25/1997, 04/19/1997, 03/18/1997 HIV Screening Completed 08/06/2019 Hepatitis C Screening Completed 08/06/2019, 019 HPV Vaccines Aged Out No longer eligi ble based on patient's age to complete this topic Hepatitis A Vaccines Aged Out No long er eligible based on patient's age to complete this topic Meningococcal Vaccine Aged Out No rio jesica eligible based on patient's age to complete this topic Pneumococcal Vaccine: Pediatrics (0 to 5 Years) and At-Risk Patients (6 to 49) Years) Aged Out No longer eligible based on patient's age to complete this topic RSV under 20 months Aged Out No longe r eligible based on patient's age to complete this topic Rotavirus Vaccines Aged Out No longer eligible based on patient's age to complete this topic Procedures Procedure Name Priority Date/Time Associated Diagnosis Comments HCG, TOTAL, QN Routine 09/26/2024 12:37 PM EST Low libido PAP SMEAR Routine 09/14/2023 12:04 PM EST ZCRISTAL HISTORICAL HEPATITIS C ANTIBODY Routine 08/06/2019 10:35 AM EST [facility] HISTORICAL HIV AB/AG Routine 08/06/2019 10:35 AM EST PARKER HISTORICAL HPV MRNA E6/E7 Routine 08/06/2019 9:15 AM EST from Last 3 Months or Most Recently Relevant to Health Maintenance Results * hCG, Total, Quantitative (09/26/2024 12:37 PM EST) HCG Quantitative <2 mIU/mL [facility] Comment:Weeks post LMP Appr oximate hCG(Last Menstrual Period) Range (mIU/ml)3 - 4 weeks 9 - 1304 - 5 weeks 75 - 2,6005 - 6 weeks 850 - 20,8006 - 7 weeks 4000 - 100,2007 - 12 weeks 11,500 - 289,10925 - 16 weeks 18,300 - 137,35314 - 29 weeks (2nd trimester) 1,400 - 53,61666 - 41 weeks (3rd trimester) 940 - 60,000The Langston B-hCG assay is used for the early detection [...] MD LAB BLOOD ORDERABL ES Final Result [facility] [address] [place] [address] [phone] * Pap Smear (09/14/2023 12:04 PM EST) 09/14/2023 12:0 4 PM EST 09/15/2023 10:00 AM EST Narrative [facility] - 09/29/2023 10:58 AM EST ----- ------- Name: Gabriel Geronimo ?Age/Sex: 37/F ? : 1985 Unit#: [id number] ?? Attend Dr: Johny Lozoya MD ?Re09/14/23 ?Status: DEP REF ? Location: HO.LNP ?Disch: ? ----- ------- SPEC : [id number] ? RECD: 09/15/23-1000 ? STATUS: ??SOUT ? REQ NUM: [id number] ? CANDY: 09/14/23-1204 ? SUBM DR: Johny Lozoya MD ? ENTERED: ??09/15/23-3 ?SP TYPE: Pap Smr ?OTHR DR: Olimpia Shahid MD ? ORDERED: ??Pap Smear, PAP path review ? Interpretation ?? General Category: ? Epithelial cell abnormality. ?? Adequacy: ? Endocervical component present. ?? Interpretation: ? Low grade squamous intraepithelial lesion (ROMAN I). ?Abundant acute inflammation. ? HPV mRNA E6/E7: ?Not Detected ? This assay detects E6/E7 viral messenger RNA (mRNA) from 14 high-risk HPV types (16, 18, ?? 31, 33, 35, 39, 45, 51, 52, 56, 58, 59, 66, 68) ? HPV testing performed by [facility], [place], [place]. ??See reference laboratory ?? portion of the EMR for entire report. ?Clinical Information LMP: Unknown date Previous PAP test: Unknown date/findings Other history: Abnormal uterine and vaginal bleeding ? Material Received ?? ThinPrep-Cervical Copies To: ?? Olimpia Shahid MD ?? [address] [facility] [address] ?? [place] [address] ?? [phone] ?? Johny Lozoya MD ?? [address] [facility] ?? [place] [address] ?? [phone] ----- ------- Signed (signature on file) Theresa Chino 09/29/23 1058 ? ----- ------- ? END OF REPORT ? Generic External Data Provider LAB CYTOLOGY ORDE RABLES Final Result Performing Organization Address City/[facility] [address]/ZIP Co de Phone Number [facility] [address] [place] [address] [phone] * HEPATITIS C ANTIBODY (08/06/2019 10:35 AM EST) [facility] HEPATITIS C ANTIBODY NONREACTIVE NONREACTIVE [facility] Comment: Antibodies to HCV not detected; does not exclude early acute HCV infection. 08/06/2019 10:3 5 AM EST Historical Provider MD HISTORICAL/NON ORDERABLE LABS Final Result Performing Organization Address [facility] [address]/[facility] Co de Phone Number [facility] [address] * HIV AB/AG (08/06/2019 10:35 AM EST) Pathologist [facility] HIV AG/AB NONREACTIVE [facility] Comment: HIV-1 p24 Ag and/or HIV-1/HIV-2 Ab not detected. ?? A test result that is nonreactive does not exclude the possibility of exposure to or infection with HIV-1 and/or HIV-2. Nonreactive results in this assay for individuals with prior exposure to HIV-1 and/or HIV-2 may be due to antigen and antibody levels that are below the limit of detection of this assay. ?? [employer] HIV Ag/Ab Combo assay result and supplemental assay results should be interpreted in conjunction with the patient's clinical presentation, history and other laboratory results. ??If the results are inconsistent with clinical evidence, additional testing is suggested to confirm the result. 08/06/2019 10:3 5 AM EST us Historical Provider HISTORICAL/NON ORDERABLE LABS Final Result Performing Organization Address City/[facility] [address]/[facility] Co de Phone Number [facility] [address] * HPV mRNA E6/E7 (08/06/2019 9:15 AM EST) HPV mRNA E6/E7 Not Detected NOT DETECTED [facility] Comment: This test was performed using the APTIMA(R) HPV Assay ([employer] This assay detects E6/E7 viral messenger RNA (mRNA) from 14 high-risk HPV types (16,18,31,33,35,39,45,51, 52,56,58,59,66,68). For additional information please refer to: http://education.farmaciamarket/faq/YMW239g5 (This link is being provided for informational/ educational purposes only.) The analytical performance characteristics of this assay have been determined by [employer] [place], [place]. The modifications have not been cleared or approved by the FDA. This assay has been validated pursuant to the CLIA regulations and is used for clinical purposes. Test Performed by [facility], [facility], [address] [place] [address] Skip Castaneda M.D., Ph.D., Director of Laboratories , CLIA [id number] Please note: ??Effective 04/04/2016, HPV testing will be performed using [employer]'s APTIMA test which targets mRNA. Detecting mRNA instead of DNA, as in older methods, offers significant improvements in specificity. 08/06/2019 9:15 AM EST Historical Provider HISTORICAL/NON ORDERABLE LABS Final Result [facility] [address] from Last 3 Months or Most Recently Relevant to Health Maintenance Insurance [facility] C3 Care Teams Manager Online Relationship Specialty Start Date End Date Ankit Paredes MD [address] [place] [phone] PCP - General Internal Medicine 12/13/23
--- OUTSIDE RECORDS SUMMARY | 2024-09-26 15:06 | XMS_ITS | Clinical Summary ---
Author Organization [facility] Address [address] [place] [address] Care Team Providers Care Last Code Striper Name Role Phone Unknown Primary Care Provider [phone] Allergies Active Allergy Reactions Criticality Noted Date Comments Esomeprazole Shortness Of Breath High 11/24/2020 Penicillins Swelling Medium 11/24/2020 Medications No known medications Active Problems No known active problems Social History Tobacco Use Types Packs/Day Years Used Date Smoking Tobacco: Never Smokeless Tobacco: Never Alcohol Use Standard Drinks/Week Comments Yes 0 (1 standard drink = 0.6 oz pur e alcohol) social Sex and Gender Information Value Date Recorded Sex Assigned at Not on file Gender Identity Not on file Sexual Orientation Not on file Last Filed Vital Signs Vital Sign Reading Time Taken Comments Blood Pressure 99/58 11/27/2020 1:45 PM EDT Pulse 97 11/27/2020 1:45 PM EDT Temperature 36.1 ??C (97 ??F) 11/27/2020 11:15 AM EDT Respiratory Rate 47 11/27/2020 1:45 PM EDT Oxygen Saturation 99% 11/27/2020 1:45 PM EDT Inhaled Oxygen Concentration - - Weight 79.8 kg (176 lb) 11/24/2020 3:44 PM EDT Height 165.1 cm (5' 5 ) 11/24/2020 3:44 PM EDT Body Mass Index 29.29 11/24/2020 3:44 PM EDT Plan of Treatment Health Maintenance Due Date Last Done Comments Hepatitis C Virus Screening 1985 HIV Screening 1998 DTaP/Tdap/Td Vaccines (1 - Tdap) 2004 Hepatitis B Vaccines (1 of 3 - 19+ 3-dose series) 2004 COVID-19 Vaccine ( - 2023-2 5 season) 2024 HPV Vaccines Aged Out No longer eligi ble based on patient's age to complete this topic Pneumococcal Vaccine: Pediat carlos (0-5 Years) and At-Risk Patients (6 to 49 Years) Aged Out No longer eligible b ased on patient's age to complete this topic Care Teams Last Code Striper Relationship Specialty Start Date End Date Unknown Unknow Provider Address PCP - General 11/23/20
--- OUTSIDE RECORDS SUMMARY | 2024-09-26 15:06 | XMS_ITS | Patient Health Record ---
Author Organization [facility] Address [address] [place] [address] Support Name Relationship Address Phone Gabriel Geronimo Guarantor Unknown [phone] Reason For Referral No Information Plan Of Treatment Pending Test Test Name Order Date SARS-COV-2, NAAT/RT-PCR/TMA - 17442 10/2020 Insurance Providers Payer Name Payer Address Payer Phone Subscriber Number Group Number Insured Name Patient Relationship to Insured Coverage Start Date Coverage End Date CARES Act Gabriel Geronimo Self - patient is the insured
--- OUTSIDE RECORDS SUMMARY | 2024-09-26 15:06 | XMS_ITS | Encounter Summary ---
Author Organization [employer] Address [address] [place] [address] Care Team Providers Care Manufacturing Storeperson Name Role Phone Ankit Paredes MD Primary Care Prov ider Encounter Details Date Type Department Care Team (Latest Contact Info) Description 09/23/2024 Travel Social History Tobacco Use Types Packs/Day Years [...] is your housing situation today? I have angelicdasha elizabeth 12/08/[address] you [...] AM EDT documented as of this encounter Plan of Treatment Upcoming Encounters Date Type Department Care Team (Late st Contact Info) Description 10/03/2024 10:15 AM EDT Telemedicine [facility] MED [facility] P[facility] [address] [place] [address] Ankit Paredes MD [address] [place] [address] documented as of this encounter Visit Diagnoses Not on filedocumented in this encounter Additional Health Concerns Assessment Noted Time PHQ-9 Depression Total Score: 0 12/08/19 9:46 AM EDT documented as of this encounter Care Teams Manufacturing Storeperson Relationship Specialty Start Date End Date Ankit Paredes MD [address] [place] [address] PCP - General Internal Medicine 12/13/23 documented as of this encounter
--- OUTSIDE RECORDS SUMMARY | 2024-09-26 15:06 | XMS_ITS | Encounter Summary ---
Author Organization [employer] Address [address] [facility] [address], [place] [address] Care Team Providers Care Tree Girdler Name Role Phone Ankit Paredes MD Primary Care Prov ider Reason for Visit * Reason Onset Date Comments Nurse Triage 07/28/2023 Encounter Details Date Type Department Care Team ([facility] st Contact Info) Description 07/28/2023 Telephone [facility] [address] [place] [address] Olimpia Shahid MD [address] [place] [address] Nurse Triage Social History Tobacco Use Types Packs/Day Years Used Date Smoking Tobacco: Never Assessed Comments Unknown Sex and Gender Information Value Date Recorded Sex Assigned at Female 05/23/2022 10:15 AM EDT Legal Sex Female 10:15 AM EDT Gender Identity Choose not to disclose 10:15 AM EDT Sexual Orientation Choose not to disclose 2021 10:15 AM EDT documented as of this encounter Miscellaneous Notes * Telephone Encounter - Kirill Roblero - 07/28/2023 11:48 AM EST Symptom: Back Pain - Not From Injury Outcome: Talk to a nurse or provider within 15 minutes Reason: Can't walk (unless normally can't walk) The caller accepted this outcome Please contact pt @ [phone] documented in this encounter Plan of Treatment Upcoming Encounters Date Type Department Care Team (Late st Contact Info) Description 10/03/2024 10:15 AM EDT Telemedicine [facility] [address] [place] [address] Ankit Paredes MD [address] [place] [address] documented as of this encounter Visit Diagnoses Not on filedocumented in this encounter Care Teams Tree Girdler Relationship Specialty Start Date End Date Ankit Paredes MD [address] [place] [address] PCP - General Internal Medicine 12/13/23 documented as of this encounter
[2024-10-05 05:28] LABS: Estradiol Ultra Sensitive 68 pg/mL
== END 2024-09-26 12:35 | disposition home or self-care (01) ==
LOC: HO.CHCLDS 12:34
PROVIDERS: Visit Provider Internal Medicine
DX: R68.82 Decreased libido (principal)
CPT/HCPCS: 36415; 82670; 84146; 84702

== ENCOUNTER 2025-03-23 10:24 | Emergency (ER) | payer MEDICAID, SELFPAY ==
--- NOTE | ~2025-03-23 | CT_ITS ---
CLINICAL HISTORY: LLQ abd pain ruptured ovarian cyst v stone CT abdomen and pelvis with IV contrast. COMPARISON: None provided. FINDINGS: Partially visualized lung bases are unremarkable. No focal hepatic lesion. Cholecystectomy. Normal spleen. Normal pancreas. Normal adrenal glands. Symmetric renal enhancement. Right renal cystic lesion measuring 0.9 cm. No hydronephrosis. Diminutive appendix. Mild colonic stool burden. No bowel obstruction. No evidence of diverticulitis. Multiple normal-sized retroperitoneal lymph nodes. Normal abdominal aorta. Urinary bladder is unremarkable given degree of distention. Lobulated uterine contour with peripherally calcified lesion in the uterine body. These likely represents a fibroid uterus. Dominant left ovarian cyst/follicle measuring up to 2.2 cm. Mild spondylosis. No acute fracture or suspicious bone lesion. IMPRESSION: 1. Dominant left ovarian cyst/follicle measuring up to 2.2 cm. 2. Likely fibroid uterus. 3. No evidence of renal obstruction. No renal or ureteral calculus identified bilaterally. This document has been electronically signed by: Leno Tolliver MD on 03/23/2025 13:18:17
--- NOTE | ~2025-03-23 | US_ITS ---
CLINICAL HISTORY: left pelvic pain Ultrasound pelvis transabdominal and transvaginal. COMPARISON: CT abdomen and pelvis dated 03/23/25 at 12:24 EDT US pelvis dated 08/24/23 at 11:00 EST Technique: Real time sonographic imaging, including color-flow imaging, was performed by the stab setter and driller. Multiple promotions representative static images were saved for review. FINDINGS: Anteverted uterus measures 11.0 x 5.8 x 8.3 cm. Submucosal fibroid measuring 3.1 x 2.6 x 2.8 cm with peripheral calcifications, previously measured 4.9 x 3.8 x 4.1 cm. Shadowing fibroid along the uterine fundus on the left measuring 3.4 x 2.9 x 2.0 cm, previously measured 2.2 x 2.2 x 2.4 cm. Fibroid along the uterine body on the left measuring 1.3 x 1.3 x 1.8 cm, not previously seen. Endometrium: 22 mm thickened. Right ovary measures 2.7 x 1.4 x 1.5 cm. Normal color and arterial and venous waveform Doppler. No right adnexal mass identified. Normal appearing physiologic follicles/cysts. Left ovary measures 3.2 x 3.3 x 1.9 cm. Normal color and arterial and venous waveform Doppler. No left adnexal mass identified. Dominant left ovarian cyst measuring 1.7 x 1.2 x 1.6 cm. No free fluid identified in the pelvic cul-de-sac. IMPRESSION: 1. No evidence of ovarian torsion. 2. Fibroid uterus. 3. Thickened endometrium. Endometrial lesion is not excluded. Consider direct visualization and gynecologic consult. This document has been electronically signed by: Leno Tolliver MD on 03/23/2025 16:24:22
--- NOTE | ~2025-03-23 | US_ITS ---
CLINICAL HISTORY: left pelvic pain Ultrasound pelvis transabdominal and transvaginal. COMPARISON: CT abdomen and pelvis dated 03/23/25 at 12:24 EDT US pelvis dated 08/24/23 at 11:00 EST Technique: Real time sonographic imaging, including color-flow imaging, was performed by the rn burn. Multiple exhibit display representative static images were saved for review. FINDINGS: Anteverted uterus measures 11.0 x 5.8 x 8.3 cm. Submucosal fibroid measuring 3.1 x 2.6 x 2.8 cm with peripheral calcifications, previously measured 4.9 x 3.8 x 4.1 cm. Shadowing fibroid along the uterine fundus on the left measuring 3.4 x 2.9 x 2.0 cm, previously measured 2.2 x 2.2 x 2.4 cm. Fibroid along the uterine body on the left measuring 1.3 x 1.3 x 1.8 cm, not previously seen. Endometrium: 22 mm thickened. Right ovary measures 2.7 x 1.4 x 1.5 cm. Normal color and arterial and venous waveform Doppler. No right adnexal mass identified. Normal appearing physiologic follicles/cysts. Left ovary measures 3.2 x 3.3 x 1.9 cm. Normal color and arterial and venous waveform Doppler. No left adnexal mass identified. Dominant left ovarian cyst measuring 1.7 x 1.2 x 1.6 cm. No free fluid identified in the pelvic cul-de-sac. IMPRESSION: 1. No evidence of ovarian torsion. 2. Fibroid uterus. 3. Thickened endometrium. Endometrial lesion is not excluded. Consider direct visualization and gynecologic consult. This document has been electronically signed by: Leno Tolliver MD on 03/23/2025 16:24:22
[2025-03-23 10:30] VITALS: BP 126/80; PULSE 98; RESP 18; TEMP 36.4; O2SAT 100; BMI 27.8
[2025-03-23 10:50] LABS: MANUAL DIFF FLAG NO
[2025-03-23 10:51] LABS: Hematocrit 35.6 % (37.0-47.0); Hemoglobin 12.0 g/dl (12.0-16.0); Imm Gran Abs Auto 0.03 X10*3/uL (0.00-0.03); Imm Gran Pct Auto 0.3 % (0.0-0.4); Lymphocytes Absolute Auto 1.9 X10*3/uL (1.2-4.9); Mean Corpuscular HGB Conc 33.7 g/dl (31.0-35.0); Mean Corpuscular Hemoglobin 27.5 pg (27.0-33.0); Mean Corpuscular Volume 81.7 fL (80.0-98.0); NRBC Abs Auto 0.000 X10*3/uL (0.0-0.012); NRBC Pct Auto 0.0 /100WBC (0.0-0.2); Platelet Count 340 X10*3/uL (160-400); Red Blood Count 4.36 X10*6/uL (4.20-5.50); White Blood Count 9.3 X10*3/uL (4.8-10.8)
[2025-03-23 10:52] LABS: Appearance Urine Cloudy; Glucose Urine UA Negative (Negative); PH 6.0 (5.0-9.0); Specific Gravity - Urine 1.020 (1.005-1.025); UMIC TRIGGER UACC YES
[2025-03-23 10:57] LABS: UACC Culture Trigger YES
[2025-03-23 11:04] LABS: Alanine Aminotransferase 15 U/L (0-31); Albumin Level 4.6 g/dL (3.5-5.0); Alkaline Phosphatase 50 U/L (39-117); Anion Gap 16 (12-20); Aspartate Amino Transferase 24 U/L (5-31); Blood Urea Nitrogen 13 mg/dL (9-16); Calcium 9.3 mg/dL (8.4-10.2); Carbon Dioxide 20 mmol/L (22-29); Chloride 106 mmol/L (96-108); Creatinine Clr Calc Pharmacy 105.3; Estimated Glomerular Filt Rate > 60; Potassium 4.0 mmol/L (3.3-5.1); Sodium 138 mmol/L (135-145); Total Protein 8.1 g/dL (6.5-8.0)
--- OUTSIDE RECORDS SUMMARY | 2025-03-23 11:26 | XMS_ITS | Encounter Summary ---
Author Organization [employer] Address [address] [facility] [address] [place] [address] Care Team Providers Care Hollow Handle Knife Assembler Name Role Phone Ankit Paredes MD Primary Care Prov ider Encounter Details Date Type Department Care Team ([facility] st Contact Info) Description 03/23/2025 Orders Only GENERIC EXTERNAL DATA DEPARTMENT Provider, Generic External Data Social History Tobacco Use Types Packs/Day Years [...] your housing situation today? I have angelic sing 12/08/[address] you li [...] Sex Female 10:15 AM EDT Gender Identity Female 10/02/2024 2:52 PM EDT Sexual Orientation Straight 10/02/2024 2: 52 PM EDT documented as of this encounter Plan of Treatment Not on file documented as of this encounter Procedures Procedure Name Priority Date/Time Associated Diagnosis Comments URINALYSIS, COMPLETE, WITH REFLEX TO CULTURE Routine 03/23/2025 10:45 AM EDT CBC WITH AUTO DIFFERENTIAL Routine 03/23/2025 10:45 AM EDT HCG, TOTAL, QN Routine 03/23/2025 10:45 AM EDT COMPREHENSIVE METABOLIC PANEL Routine 03/23/2025 10:45 AM EDT documented in this encounter Results * hCG, Total, Quantitative (03/23/2025 10:45 AM EDT) HCG Quantitative <2 mIU/mL [facility] Comment:Weeks post LMP Appro ximate hCG(Last Menstrual Period) Range (mIU/ml)3 - 4 weeks 9 - 1304 - 5 weeks 75 - 2,6005 - 6 weeks 850 - 20,8006 - 7 weeks 4000 - 100,2007 - 12 weeks 11,500 - 289,76961 - 16 weeks 18,300 - 137,55876 - 29 weeks (2nd trimester) 1,400 - 53,30973 - 41 weeks (3rd trimester) 940 - 60,000The [place]ston B- hCG assay is used for the early detection ofpregnancy; it cannot be used to diagnose any conditionunrelated to . If a B-hCG level is not supportedby the clinical evidence, results should be confirmed by analternative method (qualitative urine hCG, for example). 03/23/2025 10:4 5 AM EDT 03/23/2025 10:48 AM EDT us Generic External Data Provider LAB BLOOD ORDERAB LES Final Result [facility] [address] [place] [address] [phone] * (ABNORMAL) Comprehensive Metabolic Panel (03/23/2025 10:45 AM EDT) Sodium 138 135 - 145 mmol/L [facility] Potassium 4.0 3.3 - 5.1 mmol/L [facility] Chloride 106 96 - 108 mmol/L [facility] Carbon Dioxide 20(L) 22 - 29 mmol/L [facility] Anion Gap 16 12 - 20 [facility] Urea Nitrogen (BUN) 13 9 - 16 mg/dL [facility] Creatinine, Serum 0.73 0.5 - 1.4 mg/dL [facility] Creatinine Clr Calc Pharmacy 105.3 [facility] Comment:Provided height and weight: 165.1 cm,75.7 kg.eGFR (calculated from the MDRD study equation) and eCrCl(calculated from the Cockcroft-Gault equation) are based ondifferent parameters and may not yield comparable results.If eCrCl result is absurd, please check patient'sheight/weight. Estimated Glomerular Filt Rate >60 [facility] Comment:Chronic Kidney Disea se: Estimated GFR < 60 mL/min/1.53v5Hcvbru Kidney Disease: Estimated GFR < 15 mL/min/1.73m2 Glucose 109 60 - 115 mg/dL [facility] Calcium 9.3 8.4 - 10.2 mg/dL [facility] Bilirubin, Total 0.4 0.0 - 1.0 mg/dL [facility] Aspartate Amino Transferase 24 5 - 31 U/L [facility] Alanine Aminotransferase 15 0 - 31 U/L [facility] Total Protein 8.1(H) 6.5 - 8.0 g/dL [facility] Albumin Level 4.6 3.5 - 5.0 g/dL [facility] Alkaline Phosphatase 50 39 - 117 U/L [facility] 03/23/2025 10:4 5 AM EDT 03/23/2025 10:48 AM EDT us Generic External Data Provider LAB BLOOD ORDERAB LES Final Result Performing Organization Address City/[facility]/ZIP Co de Phone Number [facility] [address] [place] [address] [phone] * (ABNORMAL) Urinalysis, Complete, with Reflex to Culture (03/23/2025 10:45 AM EDT) Color Urine Yellow [facility] Appearance Urine Cloudy [facility] PH 6.0 5.0 - 9.0 [facility] Glucose Urine UA Negative Negative mg/dL [facility] Urine Blood Small (1+)(A) Negative [facility] Specific Romeo - Urine 1.020 1.005 - 1.025 [facility] Urine Protein Trace Neg-Trace mg/dL [facility] Urine Ketones Trace Negative mg/dL [facility] Nitrite Urine Negative Negative [facility] Leukocyte Esterase Urine Large (3+)(A) Negative [facility] RBC Urine 6-10(A) 0 - 2 /HPF [facility] Urine WBC >50(A) 0 - 5 /HPF [facility] Urine Squamous Epithelial Cell 6-10 0 - 2 /HPF [facility] Urine Bacteria 3+ None Seen [facility] Hyaline Casts, Urine 3-5 0 - 2 /LPF [facility] 03/23/2025 10:4 5 AM EDT 03/23/2025 10:48 AM EDT Narrative [facility] - 03/23/2025 10:59 AM EDT [id number], Clean Catch us Generic External Data Provider LAB URINE ORDERAB LES Final Result Performing Organization Address [facility]/ZIP Co de Phone Number [facility] [address] [place] [address] [phone] * (ABNORMAL) CBC auto differential (03/23/2025 10:45 AM EDT) White Blood Count 9.3 4.8 - 10.8 X10*3/uL [facility] Red Blood Count 4.36 4.20 - 5.50 X10*6/uL [facility] Hemoglobin 12.0 12.0 - 16.0 g/dl [facility] Hematocrit 35.6(L) 37.0 - 47.0 % [facility] Mean Corpuscular Volume 81.7 80.0 - 98.0 fL [facility] Mean Corpuscular Hemoglobin 27.5 27.0 - 33.0 pg [facility] Mean Corpuscular HGB Conc 33.7 31.0 - 35.0 g/dl [facility] Red Cell Distribution Width 14.1 11.0 - 16.0 % [facility] Platelet Count 340 160 - 400 X10*3/uL [facility] Mean Platelet Volume 8.0(L) 9.4 - 12.3 fL [facility] Neutrophils Percent Auto 73.4(H) 45 - 73 % [facility] Imm Gran Pct Auto 0.3 0.0 - 0.4 % [facility] Lymphocytes Percent Auto 20.1 20 - 40 % [facility] Monocytes Percent Auto 5.0 2 - 11 % [facility] Eosinophils Percent Auto 0.7 0 - 4 % [facility] Basophils Percent Auto 0.5 0 - 2 % [facility] NRBC Pct Auto 0.0 0.0 - 0.2 /100WBC [facility] Neutrophils Absolute Auto 6.8 2.0 - 8.3 x10*3/uL [facility] Imm Gran Abs Auto 0.03 0.00 - 0.03 X10*3/uL [facility] Lymphocytes Absolute Auto 1.9 1.2 - 4.9 X10*3/uL [facility] Monocytes Absolute Auto 0.5 0.1 - 1.2 X10*3/uL [facility] Eosinophils Absolute Auto 0.1 0.0 - 0.4 X10*3/uL [facility] Basophils Absolute Auto 0.1 0.0 - 0.2 X10*3/uL [facility] NRBC Abs Auto 0.000 0.0 - 0.012 X10*3/uL [facility] 03/23/2025 10:4 5 AM EDT 03/23/2025 10:48 AM EDT us Generic External Data Provider LAB BLOOD ORDERAB LES Final Result [facility] [address] [place] [phone] [phone] documented in this encounter Visit Diagnoses Not on filedocumented in this encounter Additional Health Concerns Assessment Noted Time PHQ-9 Depression Total Score: 0 12/08/19 24 9:46 AM EDT documented as of this encounter Care Teams Hollow Handle Knife Assembler Relationship Specialty Start Date End Date Ankit Paredes MD [address] [place] [phone] PCP - General Internal Medicine 12/13/23 documented as of this encounter
--- OUTSIDE RECORDS SUMMARY | 2025-03-23 11:26 | XMS_ITS | Clinical Summary ---
Author Organization [facility] Address [address] [place] [phone] Care Team Providers Care Lead Pastor Name Role Phone Unknown Primary Care Provider [phone] Allergies Active Allergy Reactions Criticality Noted Date Comments Esomeprazole Shortness Of Breath High 11/24/2020 Penicillins Swelling Medium 11/24/2020 Medications No known medications Active Problems No known active problems Social History Tobacco Use Types Packs/Day Years Used Date Smoking Tobacco: Never Smokeless Tobacco: Never Alcohol Use Standard Drinks/Week Comments Yes 0 (1 standard drink = 0.6 oz pur e alcohol) social Comments No Sex and Gender Information Value Date Recorded Sex Assigned at Not on file Legal Sex Female 6:23 PM EST Gender Identity Not on file Sexual Orientation Not on file Last Filed Vital Signs Vital Sign Reading Time Taken Comments Blood Pressure 99/58 11/27/2020 1:45 PM EDT Pulse 97 11/27/2020 1:45 PM EDT Temperature 36.1 C (97 F) 11/27/2020 11:15 AM EDT Respiratory Rate 47 [...] of 3 - 19+ 3-dose series) 2004 HPV Vaccines (1 - 3-dose SCD M series) 2012 COVID-19 Vaccine (1 - 2023-2 5 season) 2024 Pneumococcal Vaccine: Pediat carlos (0-5 Years) and At-Risk Patients (6 to 49 Years) Aged Out No longer eligible b ased on patient's age to complete this topic Care Teams Lead Pastor Relationship Specialty Start Date End Date Unknown Unknow Provider Address PCP - General 11/23/20
--- OUTSIDE RECORDS SUMMARY | 2025-03-23 11:26 | XMS_ITS | Encounter Summary ---
Author Organization [employer] Address [address] [facility] [address] [place] [address] Care Team Providers Care Manager Of Software Name Role Phone Ankit Paredes MD Primary Care Prov ider Reason for Visit * Reason Onset Date Comments Nurse Triage 07/28/2023 Encounter Details Date Type Department Care Team (Late st Contact Info) Description 07/28/2023 Telephone [facility] [address] [place] [address] Olimpia Shahid MD [address] [place] [address] Nurse Triage Social History Tobacco Use Types Packs/Day Years Used Date Smoking Tobacco: Never Assessed Comments Unknown Sex and Gender Information Value Date Recorded Sex Assigned at Female 05/23/2022 10:15 AM EDT Legal Sex Female 10:15 AM EDT Gender Identity Female 10/02/2024 2:52 PM EDT Sexual Orientation Straight 10/02/2024 2: 52 PM EDT documented as of this encounter Miscellaneous Notes * Telephone Encounter - Kirill Roblero - 07/28/2023 11:48 AM EST Symptom: Back Pain - Not From Injury Outcome: Talk to a nurse or provider within 15 minutes Reason: Can't walk (unless normally can't walk) The caller accepted this outcome Please contact pt @ [phone] documented in this encounter Plan of Treatment Not on file documented as of this encounter Visit Diagnoses Not on filedocumented in this encounter Care Teams Manager Of Software Relationship Specialty Start Date End Date Ankit Paredes MD [address] [place] [phone] PCP - General Internal Medicine 12/13/23 documented as of this encounter
--- OUTSIDE RECORDS SUMMARY | 2025-03-23 11:26 | XMS_ITS | Patient Health Record ---
Author Organization [facility] Address [address] [place] [address] Support Name Relationship Address Phone Gabriel Geronimo Guarantor Unknown [phone] Reason For Referral No Information Plan Of Treatment Pending Test Test Name Order Date SARS-COV-2, NAAT/RT-PCR/TMA - [id number] 10/2020 Insurance Providers Payer Name Payer Address Payer Phone Subscriber Number Group Number Insured Name Patient Relationship to Insured Coverage Start Date Coverage End Date CARES Act Gabriel Geronimo Self - patient is the insured
--- OUTSIDE RECORDS SUMMARY | 2025-03-23 11:26 | XMS_ITS | Clinical Summary ---
Author Organization [employer] Address [address] [facility] [address] [place] [address] Care Team Providers Care [employer] Name Role Phone Ankit Paredes MD Primary Care Prov ider Allergies Active Allergy Reactions Criticality Noted Date Comments Penicillin G Swelling,Rash Low 12/08/2023 Medications buPROPion XL (Wellbutrin XL) 150 MG 24 hr tablet Take 1 tablet (150 mg) by mouth Once per day. Do not crush, chew, or split. 30 tablet 11 11/19/2024 Active Active Problems Problem Noted Date Diagnosed Date [...] vaginal bleeding, on ferrous sulfate, followed by ob-real estate processor Chronic bilateral low back pain without sciatica [...] anemia due to vaginal bleeding Psh: tubal [id number]/cholecystectomy 2013 A0 Menarche 12yr LMP 11/22/2023 Cervical cancer screening: done on 2022 Dr beena cantrell ob-real estate processor Encounters Date Type Department Care Team Description 03/23/2025 Orders Only GENERIC EXTERNAL DATA DEPARTMENT Provider, Generic External Data from Last 3 Months Immunizations Immunization Administration Dates Next Due Tdap 02/27/2024 Family [...] Orientation Straight 10/02/2024 2: 52 PM EDT Last Filed Vital Signs Vital Sign Reading Time Taken Comments Blood Pressure 117/78 02/27/2024 11:55 AM EDT Pulse 89 02/27/2024 11:55 AM EDT Temperature 36.3 C (97.3 F) 02/27/2024 11:55 AM EDT Respiratory Rate 12 02/27/2024 11:55 AM EDT Oxygen Saturation 98% 02/27/2024 11:55 AM EDT Inhaled Oxygen Concentration - - Weight 76.2 kg (168 lb) 02/27/2024 11:55 AM EDT Height 165 cm (5' 4.96 ) 02/27/2024 11:55 AM EDT Body Mass Index 27.99 02/27/2024 11:55 AM EDT Plan of Treatment Health Maintenance Due Date Last Done Comments Alcohol/Substance Use Screening 1997 Family Planning (PISQ) 2000 HPV Vaccines (1 - 3-dose series) 2000 COVID-19 Vaccine ( season) 2024 Cervical Cancer Screening 09/14/2024 HPV/Cotest 09/14/2024 08/06/2019 Pap Smear 09/14/2024 09/14/2023 Depression Screening 12/07/2024 12/08/2023, 12/08/19 24 SDOH Screening 12/07/2024 12/08/2023 Influenza Vaccine (#1) 2025 Disability Screening 09/23/2025 09/23/2024 Tobacco Screening 09/23/2025 09/23/2024 DTaP/Tdap/Td Vaccines (8 - Td or Tdap) [...] 08/06/2019 Hepatitis C Screening Completed 08/06/2019, 019 Hepatitis A Vaccines Aged Out No long er eligible based on patient's age to complete this topic Meningococcal B Vaccine Aged Out No l onger eligible based on patient's age to complete this topic Meningococcal Vaccine Aged Out No [place] eligible based on patient's age to complete this topic Pneumococcal Vaccine: Pediatrics (0 to 5 Years) and At-Risk Patients (6 to 49) Years Aged Out No longer eligible based on patient's age to complete this topic RSV under 20 months Aged Out No longe r eligible based on patient's age to complete this topic Rotavirus Vaccines Aged Out No longer eligible based on patient's age to complete this topic Procedures Procedure Name Priority Date/Time Associated Diagnosis Comments HCG, TOTAL, QN Routine 03/23/2025 10:45 AM EDT COMPREHENSIVE METABOLIC PANEL Routine 03/23/2025 10:45 AM EDT URINALYSIS, COMPLETE, WITH REFLEX TO CULTURE Routine 03/23/2025 10:45 AM EDT CBC WITH AUTO DIFFERENTIAL Routine 03/23/2025 10:45 AM EDT PAP SMEAR Routine 09/14/2023 12:04 PM EST [facility] HEPATITIS C ANTIBODY Routine 08/06/2019 10:35 AM EST [facility] HIV AB/AG Routine 08/06/2019 10:35 AM EST [facility] HPV MRNA E6/E7 Routine 08/06/2019 9:15 AM EST from Last 3 Months or Most Recently Relevant to Health Maintenance Results * (ABNORMAL) Urinalysis, Complete, with Reflex to Culture (03/23/2025 10:45 AM EDT) Color Urine Yellow [facility] Appearance Urine Cloudy [facility] PH 6.0 5.0 - 9.0 [facility] Glucose Urine UA Negative Negative mg/dL [facility] Urine Blood Small (1+)(A) Negative [facility] Specific Brokaw - Urine 1.020 1.005 - 1.025 [facility] Urine Protein Trace Neg-Trace mg/dL [facility] Urine Ketones Trace Negative mg/dL [facility] Nitrite Urine Negative Negative [facility] Leukocyte Esterase Urine Large (3+)(A) Negative [facility] RBC Urine 6-10(A) 0 - 2 /HPF [facility] Urine WBC >50(A) 0 - 5 /HPF [facility] Urine Squamous Epithelial Cell 6-10 0 - 2 /HPF [facility] Urine Bacteria 3+ None Seen [facility] Hyaline Casts, Urine 3-5 0 - 2 /LPF [facility] 03/23/2025 10:4 5 AM EDT 03/23/2025 10:48 AM EDT Narrative [facility] - 03/23/2025 10:59 AM EDT [id number], Clean Catch us Generic External Data Provider LAB URINE ORDERAB LES Final Result [facility] [address] [place] [phone] * (ABNORMAL) CBC auto differential (03/23/2025 10:45 AM EDT) White Blood Count 9.3 4.8 - 10.8 X10*3/uL [facility] Red Blood Count 4.36 4.20 - 5.50 X10*6/uL [facility] Hemoglobin 12.0 12.0 - 16.0 g/dl [facility] Hematocrit 35.6(L) 37.0 - 47.0 % [facility] Mean Corpuscular Volume 81.7 80.0 - 98.0 fL [facility] Mean Corpuscular Hemoglobin 27.5 27.0 - 33.0 pg [facility] Mean Corpuscular HGB Conc 33.7 31.0 - 35.0 g/dl [facility] Red Cell Distribution Width 14.1 11.0 - 16.0 % [facility] Platelet Count 340 160 - 400 X10*3/uL [facility] Mean Platelet Volume 8.0(L) 9.4 - 12.3 fL [facility] Neutrophils Percent Auto 73.4(H) 45 - 73 % [facility] Imm Gran Pct Auto 0.3 0.0 - 0.4 % [facility] Lymphocytes Percent Auto 20.1 20 - 40 % [facility] Monocytes Percent Auto 5.0 2 - 11 % [facility] Eosinophils Percent Auto 0.7 0 - 4 % [facility] Basophils Percent Auto 0.5 0 - 2 % [facility] NRBC Pct Auto 0.0 0.0 - 0.2 /100WBC [facility] Neutrophils Absolute Auto 6.8 2.0 - 8.3 x10*3/uL [facility] Imm Gran Abs Auto 0.03 0.00 - 0.03 X10*3/uL [facility] Lymphocytes Absolute Auto 1.9 1.2 - 4.9 X10*3/uL [facility] Monocytes Absolute Auto 0.5 0.1 - 1.2 X10*3/uL [facility] Eosinophils Absolute Auto 0.1 0.0 - 0.4 X10*3/uL [facility] Basophils Absolute Auto 0.1 0.0 - 0.2 X10*3/uL [facility] NRBC Abs Auto 0.000 0.0 - 0.012 X10*3/uL [facility] 03/23/2025 10:4 5 AM EDT 03/23/2025 10:48 AM EDT us Generic External Data Provider LAB BLOOD ORDERAB LES Final Result Performing Organization Address [facility]/ZIP Co de Phone Number [facility] [address] [place] [phone] * hCG, Total, Quantitative (03/23/2025 10:45 AM EDT) HCG Quantitative <2 mIU/mL [facility] Comment:Weeks post LMP Appro ximate hCG(Last Menstrual Period) Range (mIU/ml)3 - 4 weeks 9 - 1304 - 5 weeks 75 - 2,6005 - 6 weeks 850 - 20,8006 - 7 weeks 4000 - 100,2007 - 12 weeks 11,500 - 289,65116 - 16 weeks 18,300 - 137,48156 - 29 weeks (2nd trimester) 1,400 - 53,98629 - 41 weeks (3rd trimester) 940 - [...] ORDERAB LES Final Result Performing Organization Address [facility]/ZIP Co de Phone Number [facility] [address] [place] [phone] * (ABNORMAL) Comprehensive Metabolic Panel (03/23/2025 10:45 AM EDT) Sodium 138 135 - 145 mmol/L [facility] Potassium 4.0 3.3 - 5.1 mmol/L [facility] Chloride 106 96 - 108 mmol/L [facility] Carbon Dioxide 20(L) 22 - 29 mmol/L [facility] Anion Gap 16 12 - 20 [facility] Urea Nitrogen (BUN) 13 9 - 16 mg/dL [facility] Creatinine, Serum 0.73 0.5 - 1.4 mg/dL [facility] Creatinine Clr Calc Pharmacy 105.3 [facility] Comment:Provided height and weight: 165.1 cm,75.7 kg.eGFR (calculated from the MDRD study equation) and eCrCl(calculated from the Cockcroft-Gault equation) are based ondifferent parameters and may not yield comparable results.If eCrCl result is absurd, please check patient'sheight/weight. Estimated Glomerular Filt Rate >60 [facility] Comment:Chronic Kidney Disea se: Estimated GFR < 60 mL/min/1.18b1Ullahs Kidney Disease: Estimated GFR < 15 mL/min/1.73m2 Glucose 109 60 - 115 mg/dL [facility] Calcium 9.3 8.4 - 10.2 mg/dL [facility] Bilirubin, Total 0.4 0.0 - 1.0 mg/dL [facility] Aspartate Amino Transferase 24 5 - 31 U/L [facility] Alanine Aminotransferase 15 0 - 31 U/L [facility] Total Protein 8.1(H) 6.5 - 8.0 g/dL [facility] Albumin Level 4.6 3.5 - 5.0 g/dL [facility] Alkaline Phosphatase 50 39 - 117 U/L [facility] 03/23/2025 10:4 5 AM EDT 03/23/2025 10:48 AM EDT us Generic External Data Provider LAB BLOOD ORDERAB LES Final Result [facility] [address] [place] [phone] * Pap Smear (09/14/2023 12:04 PM EST) 09/14/2023 12:0 4 PM EST 09/15/2023 10:00 AM EST Narrative [facility] - 09/29/2023 10:58 AM EST ----- ------- Name: Gabriel Geronimo Age/Sex: 37/F : 1985 Unit#: [id number] Attend Dr: Johny Lozoya MD Re09/14/23 Status: DEP REF Location: HO.LNP Disch: ----- ------- SPEC : [id number] RECD: 09/15/23-1000 STATUS: THEODORA GALAVIZ NUM: [id number] CANDY: 09/14/23-1204 [facility] [place] DR: Johny Lozoya MD ENTERED: 09/15/23-1033 SP TYPE: Pap Smr OTHR DR: Olimpia Shahid MD ORDERED: Pap Smear, PAP path review Interpretation General Category: Epithelial cell abnormality. Adequacy: Endocervical component present. Interpretation: Low grade squamous intraepithelial lesion (ROMAN I). Abundant acute inflammation. HPV mRNA E6/E7: Not Detected This assay detects E6/E7 viral messenger RNA (mRNA) from 14 high-risk HPV types (16, 18, 31, 33, 35, 39, 45, 51, 52, 56, 58, 59, 66, 68) HPV testing performed by [facility], [place], [place]. See reference laboratory portion of the EMR for entire report. Clinical Information LMP: Unknown date Previous PAP test: Unknown date/findings Other history: Abnormal uterine and vaginal bleeding Material Received ThinPrep-Cervical Copies To: Olimpia Shahid MD [address] [facility] [address] [place] [address] Johny Lozoya MD [address] [place] [address] [phone] ----- ------- Signed (signature on file) [facility] 09/29/23 1058 ----- ------- END OF REPORT Generic External Data Provider LAB CYTOLOGY ARIEL CHANG Final Result [facility] [address] [place] [phone] * HEPATITIS C ANTIBODY (08/06/2019 10:35 AM EST) Pathologist [facility] [place] HEPATITIS C ANTIBODY NONREACTIVE NONREACTIVE [facility] Comment: Antibodies to HCV not detected; does not exclude early acute HCV infection. 08/06/2019 10:3 5 AM EST Historical Provider HISTORICAL/NON ORDERABLE LABS Final Result Performing Organization Address [facility] de Phone Number [facility] [address] * HIV AB/AG (08/06/2019 10:35 AM EST) HIV AG/AB NONREACTIVE [facility] Comment: HIV-1 p24 Ag and/or HIV-1/HIV-2 Ab not detected. A test result that is nonreactive does not exclude the possibility of exposure to or infection with HIV-1 and/or HIV-2. Nonreactive results in this assay for individuals with prior exposure to HIV-1 and/or HIV-2 may be due to antigen and antibody levels that are below the limit of detection of this assay. The [employer] HIV Ag/Ab Combo assay result and supplemental assay results should be interpreted in conjunction with the patient's clinical presentation, history and other laboratory results. If the results are inconsistent with clinical evidence, additional testing is suggested to confirm the result. 08/06/2019 10:3 5 AM EST Historical Provider HISTORICAL/NON ORDERABLE LABS Final Result Performing Organization Address [facility] Phone Number [facility] [address] * HPV mRNA E6/E7 (08/06/2019 9:15 AM EST) Pathologist [facility] [place] HPV mRNA E6/E7 Not Detected NOT DETECTED [facility] Comment: This test was performed using the APTIMA(R) HPV Assay ([employer] This assay detects E6/E7 viral messenger RNA (mRNA) from 14 high-risk HPV types (16,18,31,33,35,39,45,51, 52,56,58,59,66,68). For additional information please refer to: http://education.[employer]/faq/UDL974d5 (This link is being provided for informational/ educational purposes only.) The analytical performance characteristics of this assay have been determined by [facility] [place], [place]. The modifications have not been cleared or approved by the FDA. This assay has been validated pursuant to the CLIA regulations and is used for clinical purposes. Test Performed by [employer], [facility], [address] [place] [address] Skip Castaneda M.D., Ph.D., Director of Laboratories , CLIA [id number] Please note: Effective 04/04/2016, HPV testing will be performed using [employer]'s APTIMA test which targets mRNA. Detecting mRNA instead of DNA, as in older methods, offers significant improvements in specificity. 08/06/2019 9:15 AM EST us Historical Provider HISTORICAL/NON ORDERABLE LABS Final Result Performing Organization Address City/State/[facility] Co de Phone Number [facility] [address] from Last 3 Months or Most Recently Relevant to Health Maintenance Insurance [id number] Care Teams [employer] Sales Relationship Specialty Start Date End Date Ankit Paredes MD [address] [place] [phone] PCP - General Internal Medicine 12/13/23
--- NOTE | 2025-03-23 11:39 | ED.ABDPAIN ---
HPI - Abdominal Pain General Chief Complaint: Abdominal Pain Stated Complaint: abd pain Time Seen by Provider: 03/23/25 11:31 Source: patient and family Mode of arrival: ambulatory Limitations: no limitations History of Present Illness ED Provider: DR. Damon HPI narrative: This is a 39-year-old female came in for evaluation of left lower abdominal pain for the past 3 days, patient decided come in for further evaluation and the pain persists and progresses to a very severe left lower abdominal pain, patient just finished her menstruation last week, symptoms started with mild vaginal bleeding then passing blood clots vaginally, that this resolved since yesterday now the pain it is more localized to the left lower quadrant abdominal pain described as 10/10 radiates toward the left flank area also radiates toward the left side of her pelvis, associated with 1 time of vomiting that is resolved now, no fever, no chills, normal bowel movement this morning with no blood, no dysuria, no frequency urination. Patient is sexually active with 1 partner with no issue of STDs or peanut . Past medical history significant for tubal ligation and cholecystectomy, patient has been passing flatus normally. Related Data Previous Rx's ?Medication ?Instructions ?Recorded cefuroxime axetil 500 mg tablet 500 mg PO BID 7 days #14 tabs 03/23/25 cyclobenzaprine 10 mg tablet 10 mg PO TID PRN muscle spasm #10 03/23/25 tabs oxycodone 5 mg tablet 5 mg PO BID PRN pain #7 tabs 03/23/25 Allergies Allergy/AdvReac Type Severity Reaction Status Date / Time esomeprazole (From NEXIUM) Allergy Unknown NOT SURE Verified 03/23/25 10:34 Penicillins Allergy Unknown RASH Verified 03/23/25 10:34 Review of Systems Review of Systems All other systems are reviewed and are negative Constitutional: Reports as per HPI and Reports no additional constitutional complaints Eyes: Reports as per HPI and Reports no additional eye complaints Reports system reviewed and no additional complaints, except as documented Cardiovascular: Reports as per HPI and Reports no additional cardiovascular complaints Respiratory: Reports as per HPI and Reports no additional respiratory complaints Gastrointestinal: Reports as per HPI and Reports no additional gastrointestinal complaints Genitourinary: Reports no additional female genitourinary complaints Musculoskeletal: Reports no additional musculoskeletal complaints Skin/Breast: Reports system reviewed and no additional complaints, except as docu Psychiatric: Reports no additional psychiatric complaints Endocrine: Reports no additional endocrine complaints Hematologic/Lymphatic: Reports no additional hematologic/lymphatic complaints Allergic/Immunologic: Reports no additional allergic/immunologic complaints Reports system reviewed and no additional complaints, except as documented and Reports Abnormal speech present [facility] Past Medical History Medical History Uterine fibroid KIARA positive Carpal tunnel syndrome Surgical History History of carpal tunnel surgery of right wrist Hx of cholecystectomy Hx of tubal ligation Social History Social History Unable to assess alcohol history related to: Unknown Alcohol intake: current Patient Tobacco Use Status: Never used Tobacco Smoked in Last 30 Days: No Use of substances other than those prescribed or required for medical reasons: Unknown Advance Directives: No Advance Directives Information Provided: No Patient : No Physical Exam ED Vital Signs: Vital Signs - 24 hr 03/23/25 10:30 03/23/25 12:27 03/23/25 14:40 Temperature 97.6 F 98.0 F 97.5 F Pulse Rate 98 76 71 Respiratory Rate 18 18 18 Blood Pressure 126/80 105/63 108/57 L Pulse Oximetry 100 100 98 Oxygen Delivery Method Room Air Room Air Room Air BMI result Body Mass Index 27.8 Vital signs have been reviewed and appear to be correct. Blood pressure elevated. Heart rate normal. Respiratory rate normal. Temperature normal. Oxygen saturation normal. Appearance: Alert. Oriented X3. No acute distress. Head: Normal external exam. Normocephalic. Atraumatic. No [place] signs noted. No raccoon eyes noted Eyes: PERRLA. EOMI. Conjunctiva and sclera normal. Eyelids normal. ENT: TM's Normal. Pharynx normal. Uvula midline. Moist mucous membranes. No trismus noted. No drooling noted. No muffled voice noted. Neck: Normal inspection. Neck supple. FROM. No adenopathy. Thyroid Normal. No meningeal signs. No neck mass noted. CVS: Normal heart rate and rhythm. Heart sound normal. No murmurs noted. Pulses normal throughout. Respiratory: No respiratory distress. Painless inspiration. Breath sounds normal. No wheezes/rales/rhonchi noted. Chest nontender. No accessory muscle usage noted or decreased air movement noted. Abdomen: Soft, left lower quadrant abdominal tenderness, no rebound tenderness, no guarding Bowel sounds normal in all 4 quadrants. No distention noted. No organomegaly noted. No visible injury noted. Back: No CVA tenderness. Full range of motion noted. Skin: Skin warm and dry. Normal skin color. Normal skin turgor. No rashes/lesions/lacerations noted. Extremities: No lower extremity edema. Extremities exhibit normal range of motion. Extremities nontender. Neuro: Oriented X 3. Cranial nerve exam: II-XII are grossly intact No motor deficit. No sensory deficit. Reflexes normal. Course Reevaluation(s) Reevaluation #1: Left lower abdominal/left pelvic pain, unremarkable labs, CT abdomen and pelvis questioning left ovarian cyst, ultrasound rules out left ovarian torsion reveals a small cyst. 1. UTI with no evidence of pyelonephritis or obstructive uropathy. 2. No evidence of pelvic abscess or ovarian torsion. 3. Patient declined risk for STDs will check for GC/chlamydia. Time: 16:33 Medical Decision Making Differential Diagnosis Differential Diagnoses: The differential diagnosis associated with the presentation includes (Left kidney stone, pyelonephritis, rupture ovarian cyst, ovarian torsion, colitis, diverticulitis, pancreatitis, electrolyte derangement, severe anemia.) Admission/Observation Consideration of admission/observation: Escalation of care including admission/observation considered Lab Data MDM Lab Attestation statement: I reviewed the patient's lab results. 03/23/25 10:45 03/23/25 10:45 Labs: Lab Results 03/23/25 Range/Units 10:45 WBC 9.3 (4.8-10.8) X10*3/uL RBC 4.36 (4.20-5.50) X10*6/uL Hgb 12.0 (12.0-16.0) g/dl Hct 35.6 L (37.0-47.0) % MCV 81.7 (80.0-98.0) fL MCH 27.5 (27.0-33.0) pg MCHC 33.7 (31.0-35.0) g/dl RDW 14.1 (11.0-16.0) % Plt Count 340 (160-400) X10*3/uL MPV 8.0 L (9.4-12.3) fL Immature Gran % (Auto) 0.3 (0.0-0.4) % Neut % (Auto) 73.4 H (45-73) % Lymph % (Auto) 20.1 (20-40) % [place] % (Auto) 5.0 (2-11) % Eos % (Auto) 0.7 (0-4) % Baso % (Auto) 0.5 (0-2) % Lymph # (Auto) 1.9 (1.2-4.9) X10*3/uL [place] # (Auto) 0.5 (0.1-1.2) X10*3/uL Eos # (Auto) 0.1 (0.0-0.4) X10*3/uL Baso # (Auto) 0.1 (0.0-0.2) X10*3/uL Abs Immat Gran (auto) 0.03 (0.00-0.03) X10*3/uL Absolute Neuts (auto) 6.8 (2.0-8.3) x10*3/uL Absolute Nucleated RBC 0.000 (0.0-0.012) X10*3/uL Nucleated RBC % (auto) 0.0 (0.0-0.2) /100WBC Sodium 138 (135-145) mmol/L Potassium 4.0 (3.3-5.1) mmol/L Chloride 106 (96-108) mmol/L Carbon Dioxide 20 L (22-29) mmol/L Anion Gap 16 (12-20) BUN 13 (9-16) mg/dL Creatinine 0.73 (0.5-1.4) mg/dL Estim Creat Clear Calc 105.3 Estimated GFR > 60 Random Glucose 109 (60-115) mg/dL Calcium 9.3 (8.4-10.2) mg/dL Total Bilirubin 0.4 (0.0-1.0) mg/dL AST 24 (5-31) U/L ALT 15 (0-31) U/L Alkaline Phosphatase 50 (39-117) U/L Total Protein 8.1 H (6.5-8.0) g/dL Albumin 4.6 (3.5-5.0) g/dL Beta HCG, Quant < 2 mIU/mL Urine Color Yellow Urine Appearance Cloudy Urine pH 6.0 (5.0-9.0) Ur Specific [place] 1.020 (1.005-1.025) Urine Protein Trace (Neg-Trace) mg/dL Urine Glucose (UA) Negative (Negative) mg/dL Urine Ketones Trace (Negative) mg/dL Urine Blood Small (1+) H (Negative) Urine Nitrite Negative (Negative) Ur Leukocyte Esterase Large (3+) H (Negative) Urine RBC 6-10 H (0-2) /HPF Urine WBC >50 H (0-5) /HPF Ur Squamous Epith Cells 6-10 (0-2) /HPF Urine Bacteria 3+ (None Seen) Hyaline Casts 3-5 (0-2) /LPF Independent Interpretation I performed an independent interpretation of an: Ultrasound (Pelvic ultrasound:1. No evidence of ovarian torsion. 2. Fibroid uterus. 3. Thickened endometrium. Endometrial lesion is not excluded. Consider direct visualization and gynecologic consult.) and CT Scan (Abdomen and pelvis:1. Dominant left ovarian cyst/follicle measuring up to 2.2 cm. 2. Likely fibroid uterus. 3. No evidence of renal obstruction. No renal or ureteral calculus identified bilaterally.) Radiology Impression Discussion of test interpretation with radiology: I have reviewed the radiologist's reading. Medications Administered Discontinued Medications Generic Name Dose Route Start Last Admin Trade Name Freq PRN Reason Stop Dose Admin Ceftriaxone Sodium 1 gm 03/23/25 11:45 03/23/25 12:06 Ceftriaxone Sodium 1 Gm Vial IVPUSH 03/23/25 11:46 1 gm ONCE ONE Administration Hydromorphone HCl 1 mg 03/23/25 14:12 03/23/25 14:23 Hydromorphone Hcl 1 Mg/Ml Syringe IVPUSH 03/23/25 14:13 1 mg ONCE ONE Administration Protocol Lactated Ringer's 1,000 mls @ 999 mls/hr 03/23/25 11:45 03/23/25 13:33 Lr IV 03/23/25 12:45 Infused .Q1H1M DILLON Infusion Iohexol 100 ml 03/23/25 12:23 03/23/25 12:23 Iohexol 350 Mg/Ml 100 Ml Infus..Btl IV 03/23/25 12:24 85 ml ONCE ONE Administration Ketorolac Tromethamine 15 mg 03/23/25 11:37 03/23/25 12:06 Ketorolac Tromethamine 15 Mg/Ml Vial IVPUSH 03/23/25 11:38 15 mg ONCE ONE Administration Morphine Sulfate 2 mg 03/23/25 11:37 03/23/25 12:06 Morphine Sulfate 2 Mg/Ml Cartridge IVPUSH 03/23/25 11:38 2 mg ONCE ONE Administration Protocol Ondansetron HCl 4 mg 03/23/25 12:15 03/23/25 12:17 Ondansetron Hcl 4 Mg/2 Ml Vial IVPUSH 03/23/25 12:16 4 mg ONCE ONE Administration Discharge Plan Discharge Clinical Impression: Abdominal pain, UTI (urinary tract infection) Patient Disposition: Home, Self-Care Instructions: Urinary Tract Infection in Women (DC) Additional Instructions: Drink plenty of fluids, take the medicine as prescribed. Return to the ED if worsening of your symptoms. Prescriptions: New oxycodone 5 mg tablet 5 mg PO BID PRN (Reason: pain) Qty: 7 0RF Rx Instructions: Partial Fill upon patient request. cefuroxime axetil 500 mg tablet 500 mg PO BID 7 Days Qty: 14 0RF cyclobenzaprine 10 mg tablet 10 mg PO TID PRN (Reason: muscle spasm) Qty: 10 0RF Referrals: Ankit Paredes MD [Primary Care Provider, Medical] Print Language: Ug[place]an
[2025-03-23] MEDS: Lactated Ringers 1,000 ML 999 ML IV (12:07)
[2025-03-23] MEDS: iohexoL 350 MG/ML 100 ML INFUS..BTL IV (12:23)
[2025-03-23 12:27] VITALS: BP 105/63; PULSE 76; RESP 18; TEMP 36.7; O2SAT 100
--- NOTE | 2025-03-23 13:50 | PC.NURSE ---
Pt states medication for pain was not effective and she still has lower abd pain 03/02; IVF's completed per orders; awaiting further orders/dispo at this time
--- NOTE | 2025-03-23 14:38 | PC.NURSE ---
Pt medicated per orders for abd pain; hot pack placed on abd for comfort
[2025-03-23 14:40] VITALS: BP 108/57; PULSE 71; RESP 18; TEMP 36.4; O2SAT 98
[2025-03-23 17:07] VITALS: BP 116/62; PULSE 75; RESP 18; TEMP 36.5; O2SAT 98
[2025-03-24 11:36] LABS: CT PCR Urine NOT DETECTED (Not Detect.); NG PCR Urine NOT DETECTED (Not Detect.)
== END 2025-03-23 17:08 | disposition home or self-care (01) ==
PROVIDERS: Emergency Provider Emergency Medicine; PCP Internal Medicine
DX: N39.0 Urinary tract infection, site not specified (principal); N93.9 Abnormal uterine and vaginal bleeding, unspecified; R10.32 Left lower quadrant pain; R11.2 Nausea with vomiting, unspecified; R10.2 Pelvic and perineal pain; Z79.899 Other long term (current) drug therapy
CPT/HCPCS: 36415; 74177; 76830; 76856; 80053; 81001; 84702; 85025; 87086; 87147; 87491; 87591; 93975; 96361; 96374; 96375; 99284; 99285; J0696; J1171; J1885; J2270; J2405; J7120; Q9967

== ENCOUNTER → 2025-03-23 11:37 | Outpatient (BNV) | payer MEDICAID, SELFPAY | PROVIDERS: Emergency Provider Emergency Medicine; PCP Internal Medicine; Visit Provider Radiology Diagnostic Radiology | DX: R10.2 Pelvic and perineal pain (principal); N83.202 Unspecified ovarian cyst, left side | CPT/HCPCS: 74177; 76830; 76856 ==